=== PATIENT | female | born 1945 | race Caucasian/White ===

== ENCOUNTER 2016-09-10 08:11 | Inpatient (IN) | payer MEDICARE ==
[2016-09-10] VITALS (9 sets, daily range): BP systolic 180–231; BP diastolic 67–91; PULSE 61–93; RESP 15–22; O2SAT 90–98
[~2016-09-10] VITALS: Ht 172.7 cm; Wt 45.0 kg
--- NOTE | 2016-09-10 08:05 | ED.REPORT ---
HPI-General Illness Date of Service Sep 10, 2016 ED Provider: Gianni Chaves MD 70 year old female with a history of NC, CAD, cardiac stent placement, COPD, and GERD presents to the ER via EMS due to a day of chest tightness, with acute shortness of breath onset today just prior to arrival. She reports that her current symptoms feel similar to prior COPD exacerbations. Associated symptom of general malaise for the past few days. Patient denies pain with deep inspiration, fever, chills, . She takes ASA daily. NTG and ASA administered en route. Nursing Notes Stated Complaint: CHEST PAIN,SOB Nursing Notes Reviewed: Yes Allergies: Coded Allergies: Adhesives (Verified Allergy, Unknown, skin tears, 06/27/16) No Known Allergies (Verified Allergy, Unknown, 05/29/16) Iodine and Iodide Containing Produc (Verified Adverse Reaction, Unknown, rash, 06/27/16) Uncoded Allergies: NKDA (Allergy, Unknown, 04/28/04) NKFA (Allergy, Unknown, 04/28/04) Scheduled Albuterol HFA (Proair HFA) 8.5 Gm Hfa.aer.ad 2 PUFFS INHALATION Q4H Aspirin (Aspirin) 81 Mg Tablet 81 MG PO DAILY Atorvastatin Calcium (Atorvastatin Calcium) 80 Mg Tablet 80 MG PO DAILY Clopidogrel (Clopidogrel) 75 Mg Tablet 75 MG PO DAILY Isosorbide MN (Isosorbide MN) 10 Mg Tablet 10 MG PO BID Levothyroxine (Synthroid) 75 Mcg Tablet 75 MCG PO DAILY Lisinopril (Lisinopril) 20 Mg Tablet 20 MG PO DAILY Metoprolol Tartrate (Metoprolol Tartrate) 50 Mg Tablet 50 MG PO BID Paroxetine (Paroxetine) 40 Mg Tablet 40 MG PO HS Trazodone (Trazodone) 100 Mg Tablet 100 MG PO HS Scheduled PRN Alprazolam (Alprazolam) 0.5 Mg Tablet 0.5 MG PO HS PRN PRN For Anxiety Nitroglycerin SL (Nitrostat) 0.4 Mg Tab.subl 0.4 MG SL Q5MIN PRN PRN For Chest Pain Miscellaneous Medications Fluticasone Propionate (Fluticasone Propionate) 50 Mcg/Actuation Armstrong.susp 15.8 ML NS General Time Seen by MD: 08:04 Chief Complaint Chest pain Hx Obtained From: Patient Arrived By: Ambulance Sudden in Onset?: Yes Onset Occurred: Yesterday Symptom Duration: Since onset Location: : Chest Quality: Painful, Pressure Severity: Current: Moderate Severity: Maximum: Moderate Associated with: Reports: Shortness of breath Past Medical History Past Medical History NC Reports: COPD, Coronary artery disease, GERD, Stroke Reports: Depression, Thyroid disease Past Surgical History Cardiac stent placement Right rotator cuff repair Smoking History Current Every Day Smoker Review of Systems Full Review of Systems Constitutional: Reports: Malaise, Denies: Chills, Fever Respiratory: Reports: Shortness of breath, Denies: Non-productive cough Cardiovascular: Reports: Chest pain GI: Denies: Nausea, Vomiting Musculoskeletal: Denies: Back pain, Extremity pain, Neck pain Skin: Denies Diaphoresis Complete sys rev & neg: except as marked. Physical Exam Vital Signs Vital Signs Date Time Temp Pulse Resp B/P Pulse Ox O2 Delivery O2 Flow Rate FiO2 09/10/16 09:42 83 15 211/67 98 Nasal Cannula 3 09/10/16 08:20 36.6 93 22 231/90 90 Nasal Cannula 3 Initial VS: Reviewed Head / Eyes: Atraumatic, Normocephalic Neck: Supple, Non-tender, Full range of motion Abdomen / GI: Soft, Non-tender, No guarding, No rebound, No distention Extremities: Vascular intact, Neuro intact, No swelling, No tenderness Skin: Warm, Dry, No cyanosis Neurologic: Alert, Oriented, Nonfocal General/Constitutional: Awake, Alert, Well developed, Well nourished Respiratory / Chest: No rales, No rhonchi, No wheezing Diminished Breath Sounds: Positive: Decreased bilateral Wheezing / Retractions: Positive: Prolonged exp phase, Supracostal retractions Increased work of breathing. Cardiovascular: Heart rate NL, Regular rhythm, Heart sounds NL, No murmurs, Cap refill not delayed, Peripheral circulation NL Interpretation & Diagnostics Lab Results Interpretation Result Diagram: 09/10/1628 09/10/16 0828 Test 09/10/16 08:28 White Blood Count 12.6th/mm3 (3.8-10.1) Red Blood Count 3.77mil/mm3 (3.90-5.20) Hemoglobin 12.0g/dL (12.0-15.6) Hematocrit 37.0% (35.0-46.0) Mean Corpuscular Volume 98.1fL (81-100) Mean Corpuscular Hemoglobin 31.8pg (27.0-35.0) Mean Corpuscular Hemoglobin Concent 32.4% (32.0-37.0) Red Cell Distribution Width 14.8% (12.3-15.4) Platelet Count 189bil/L (150-400) Neutrophils (%) (Auto) 83.0% (40-74) Lymphocytes (%) (Auto) 8.7% (14-46) Monocytes (%) (Auto) 5.9% (4-12) Eosinophils (%) (Auto) 1.8% (0-5) Basophils (%) (Auto) 0.4% (0-3) Sodium Level 137mEq/L (134-144) Potassium Level 3.5mEq/L (3.5-5.2) Chloride Level 99mEq/L (97-108) Carbon Dioxide Level 23mmol/L (18-29) Blood Urea Nitrogen 29mg/dL (8-27) Creatinine 1.55mg/dL (0.57-1.00) Estimat Glomerular Filtration Rate 47mL/min (>59) Glucose Level 156mg/dL (60-99) Calcium Level 8.3mg/dL (8.5-10.1) Magnesium Level 2.0mg/dL (1.6-2.6) Total Bilirubin 0.4mg/dL (0.0-1.2) Aspartate Amino Transf (AST/SGOT) 42U/L (0-50) Alanine Aminotransferase (ALT/SGPT) 42U/L (0-32) Alkaline Phosphatase 169U/L (25-165) Troponin T < 0.010ug/L (0.0-0.011) Pro-B-Type Natriuretic Peptide 99113xk/mL (0-301) Total Protein 6.4g/dL (6.4-8.4) Albumin 3.5g/dL (3.4-5.0) Hold Agrawal Top Tube Received (Received) ECG Interpretation ECG Interpretation: Sinus rhythm, rate 81 ST depression of 1-2mm in lateral leads T wave inversions present in leads 2, 3, and AVF when compared to prior ECG 04/14/[address] depressions are new, and T wave inversions are new. Time: 08:36 Interpreted by: ED physician X-Ray Chest Interpretation Chest Xray Interpretation: IMPRESSION: Increased bilateral groundglass opacities in keeping with pulmonary edema. Please correlate clinically Dictated by: Alfredo Edmondson M.D. on 09/10/2016 at 10:09 Approved by: Alfredo Edmondson M.D. on 09/10/2016 at 10:10 View: AP & lat Interpretation / Wet Read by: Interpret - Radiologist Re-Eval/Medical Decision Med Decision/Clinical Course 70 year old female with a history of NC, CAD, cardiac stent placement, COPD, and GERD presents to the ER via EMS due to a day of chest tightness, with acute shortness of breath onset today just prior to arrival. She reports that her current symptoms feel similar to prior COPD exacerbations. Associated symptom of general malaise for the past few days. Patient denies pain with deep inspiration, fever, chills, . She takes ASA daily. NTG and ASA administered en route. Upon arrival the patient is a notable respiratory distress and hypertensive with a blood pressure in the 230s over 90s. EKG was obtained a interpreted by myself as documented above, EKG findings were discussed with cardiology Dr. Wright, given her overall clinical picture and negative initial troponin patient not felt to be a candidate for immediate cardiac catheterization or upper dilation. Patient was treated with the below medications: 20mg IV Labetalol 40mg IV Lasix 1 inch Nitropaste Laboratory studies were notable as below: Leukocytosis 12.6, new CBC otherwise normal BUN 29, slightly increased from baseline Creat 1.55, slightly increased from baseline BNP 37000 Troponin neg Mildly elevated transaminases and alkaline phosphatase No significant electrolyte abnormalities Chest x-ray demonstrated new onset pulmonary edema. Given patient's severe hypertension patient was treated with IV labetalol and nitro paste with improvement in blood pressure to 180 systolic. Patient has significant symptom improvement. Pulmonary examination consistent with COPD exacerbation and patient was treated with DuoNeb as well as 125 mg of IV methylprednisolone with improvement in symptoms. Overall clinical picture at this time concerning for hypertensive emergency resulting in ischemic EKG changes as well as superimposed COPD exacerbation. Blood pressure significantly improved but remains elevated. Will continue to administer IV antihypertensives as needed. Cardiology consultation. Patient admitted to ICU for further management. Source of Hx: Old records Time of Eval: 08:18 Re-Evaluation/Progress Note: Discussed physical examination findings and need for admission pending further testing. Patient is amenable to the plan. Consultation #1: Referral / Consult Name: Brianna Wright MD Consulted With: Cardiology Call Returned at: 08:45 It Data Architect: Will see patient Note: Does not recommend anything beyond ASA already administered. Consultation #2: Referral / Consult Name: Brianna Wright MD Consulted With: Cardiology Call Returned at: 09:57 Note: Dr. Wright, Cardiology, is now present in the department. Chest pain could be due to QRS widening today. In regards to heparin, either way. Consultation #3: Consulted With: Hospitalist Call Returned at: 10:42 It Data Architect: Referred to other consult Note: Admit to PCC. Consultation #4: Referral / Consult Name: Jamey Cifuentes MD Consulted With: Hospitalist Call Returned at: 10:52 It Data Architect: Agrees with eval, Agrees with plan, Accepts admit Counseled Regarding: Diagnosis, Lab results, Need for admission Discharge & Departure Primary Impression: Hypoxia Additional Impressions: Shortness of breath Chest pain Chest pain type: unspecified Qualified Code: R07.9 - Chest pain, unspecified COPD exacerbation Respiratory distress Hypertensive emergency Pulmonary edema Chronicity: acute Qualified Code: J81.0 - Acute pulmonary edema Elevated brain natriuretic peptide (BNP) level Disposition: ADMITTED TO HOSPITAL Discharge Condition All VS Reviewed: Yes Condition: Stable Referrals: Angle Peters MD (PCP) Crit Care Except Billable Proc Time Spent: 105-134 minutes Services Performed: Patient management by me, Time spent at bedside, Reviewing test results, Reviewing imaging, Discussing patient care, Documentation in record, Time with fam/surrogate Scribe Attestation Portions of this note were transcribed by Nicola Hartmann. I, Dr. Cahves, personally performed the history, physical exam and medical decision-making; I reviewed and confirmed the accuracy of the information in the transcribed note. Signed by: Jose Almaraz, 09/10/2016 and 10:52 copies to: Angle Peters MD, Beck O MD Sep 10, 2016 08:04 NICOLA HARTMANN Sep 10, 2016 08:13
[~2016-09-10 08:11] MED LIST: 0.9% Sodium Chloride 1,000 ML IV ONE; ALBU8.5H2 INHALATION; ALPR0.5T8 PO; ASPI-973 PO; ATOR80TA77 PO; CLOP75TA28 PO; FLUT15.88 NOSTRIL; ISOS10TA8 PO; LISI-567 PO; METO50TA3 PO; NITR0.4T SL; Ondansetron 2 mg/mL 2 mL Inj IVPUSH ONE; PARO40TA3 PO; SYN75 PO; TRAZ-118 PO
[2016-09-10] MEDS ORDERED: MethylprednisoLONE Sodium Succinate 62.5 mg/mL 2 mL Inj ONE (08:35)
[2016-09-10 08:37] LABS: BASOPHILS % (AUTO) 0.4 % (0-3); EOSINOPHILS % (AUTO) 1.8 % (0-5); MONOCYTES % (AUTO) 5.9 % (4-12); Mean Corpuscular Hemoglobin 31.8 pg (27.0-35.0); Mean Corpuscular Volume 98.1 fL (81-100); Platelet Count 189 bil/L (150-400)
[2016-09-10 09:22] LABS: TROPONIN T < 0.010 ug/L (0.0-0.011)
--- NOTE | 2016-09-10 10:10 | DRSVH ---
PROCEDURE: X-RAY CHEST, TWO VIEWS ([id number]) INDICATIONS: sob TECHNIQUE: 2 views of the chest were acquired. COMPARISON: [facility], CR, XR CHEST 2VW, 09/29/2015, 11:09. FINDINGS: Surgical changes and devices: None. Lungs and pleura: No pleural effusions or pneumothorax. Bilateral widespread groundglass opacities a ppear increased no definite focal consolidation. Blane B-lines noted Mediastinum: Mediastinal contours are normal. Heart size is normal. Bones and chest wall: No suspicious bony abnormalities. Soft tissues appear unremarkable. IMPRESSION: Increased bilateral groundglass opacities in keeping with pulmonary edema. Please correlate clinicall y Dictated by: Alfredo Edmondson M.D. on 09/10/2016 at 10:09 Approved by: Alfredo Edmondson M.D. on 09/10/2016 at 10:10
[2016-09-10] MEDS ORDERED: Labetalol 5 mg/mL 4 mL Inj IVPUSH ONE ×2 (10:25→13:05)
[2016-09-10] MEDS ORDERED: Furosemide 10 mg/mL 4 mL Inj IVPUSH ONE (10:25)
[2016-09-10] MEDS ORDERED: Nitroglycerin 2% 1 Gm Ointment TOPICAL SCH (10:45)
[2016-09-10] MEDS ORDERED: Ondansetron 2 mg/mL 2 mL Inj IVPUSH PRN ×2 (10:55→13:40)
[2016-09-10] MEDS ORDERED: Alum-Mag Hydrox-Simeth 30 mL Suspension PO PRN ×2 (10:55→13:40)
[2016-09-10 13:22] LABS: APPEARANCE,URINE CLEAR (CLEAR,HAZY); COLOR,URINE STRAW (YELLOW); OCCULT BLOOD,URINE TRACE (NEGATIVE); UROBILINOGEN,URINE NORMAL (NORMAL)
[2016-09-10] MEDS ORDERED: Polyethylene Glycol (PEG) 17 Gm Powder PO PRN (13:40)
[2016-09-10] MEDS ORDERED: Influenza (Adult) Vaccine 0.5 mL Syringe IM ONE (14:15)
--- NOTE | 2016-09-10 15:45 | PCM.PHAPRO ---
Progress -b 11-b 12-Aug 2.45 2.92 2.28 0.36 0.47 -0.64 2 0.5 MG 2 Stevo Silva Sep 10, 2016 15:45
[2016-09-10] MEDS ORDERED: Albuterol 1.25 mg/3 mL Inhalation Solution NEB PRN (17:30)
--- NOTE | 2016-09-10 17:32 | PCM.HPMED ---
Subjective Date of Service Sep 10, 2016 Primary Provider: Admitting Physician: Piyush Manrique MD Primary Care Physician: Angle Peters MD Attending Physician: Jamey Cifuentes MD Chief Complaint: Shortness of breath History of Present Illness: Patient is a 70 year old female with a history of IL, CAD, cardiac stent placement, COPD, and GERD presents to the ER via EMS due to a day of chest tightness, with acute shortness of breath onset today. She reports that her current symptoms feel similar to prior COPD exacerbations. She reports general malaise for the past few days, as well as orthopnea, which is better on sitting up, paroxysmal nocturnal dyspnea, wheezing, and some edema. She reports a chronic cough with clear sputum, but reports this is unchanged. She denies URI symptoms or sick contacts. Patient denies pain with deep inspiration, fever, chills, She takes ASA daily. NTG and ASA administered en route. Review of Systems: Comprehensive review of systems conducted and was negative except for the pertinent positives listed above. Allergies Coded Allergies: Adhesives (Verified Allergy, Unknown, skin tears, 06/27/16) No Known Allergies (Verified Allergy, Unknown, 05/29/16) Iodine and Iodide Containing Produc (Verified Adverse Reaction, Unknown, rash, 06/27/16) Uncoded Allergies: NKDA (Allergy, Unknown, 04/28/04) NKFA (Allergy, Unknown, 04/28/04) Home Medications Albuterol Alprazolam 0.5 mg qhs PRN Aspirin 81 mg Atorvastatin 80 mg Plavix 75 mg Fluticasone nasal Isosorbide mononitrate 10 mg BID Levothyroxine 75 mcg Lisinopril 20 mg Metoprolol tartrate 50 mg BID Nitrostate PRN Paroxetine 40 mg hs Trazodone 100 mg hs PMH [place] COPD Coronary artery disease GERD Stroke Depression Grave's disease s/p thyroidectomy Surgical History Cardiac stent placement Right rotator cuff repair Thyroidectomy Social History Hx Alcohol Use: Yes Alcoholic Drinks Per Day: couple glasses a wine or beers per week. States does not drink daily Hx Substance Use: Yes (marijuana) Hx Tobacco Use: Yes (10 cigarette a day.) Smoking Status: Current Every Day Smoker (1 pack/day) Exam Vital Signs Vital Sign - Last Date Time Temp Pulse Resp B/P Pulse Ox O2 Delivery O2 Flow Rate FiO2 09/10/16 16:44 36.7 63 18 220/88 96 Nasal Cannula 3.00 Exam General: Alert, Oriented X3, Cooperative, No Acute Distress Head: Normocephalic, atraumatic. External ears normal. Eyes: PERRLA, EOMI. Anicteric sclerae. Mouth: Mouth Normal, Mucous Membranes Moist/[place] Neck: Neck supple with full range of motion. Chest & Lungs: Crackles bilateral bases Cardiovascular: Regular Rate/Rhythm, Normal S1, Normal S2, No Murmurs/Rubs/ Gallops Abdomen: Non-tender, Non-distended, No masses, Normoactive bowel tones, Soft Musculoskeletal: Normal Range of Motion Extremities: Mild bilat pedal edema Neurological: Grossly Neurologically Intact, Normal Speech Lab and Diagnostics Result Diagram: 09/10/1682709/10/16827 Assessment & Plan Patient is a 70 year old female with a history of IL, CAD, cardiac stent placement, COPD, and GERD presents to the ER via EMS due to a day of chest tightness, with acute shortness of breath onset today. Admitted for CHF exacerbation and hypertensive emergency. 1. Acute on chronic diastolic CHF exacerbation. Present on admission. - Echo 05/07/12 showed EF 55-60%, moderate LA dilation, trace MR. She presents with pedal edema, shortness of breath on exertion, orthopnea, and paroxysmal nocturnal dyspnea in the context of a significant cardiac history. CXR showed likely pulmonary edema. BNP was 19,000. - Received Lasix 40 mg IV in ED. Will monitor for now and admin Lasix as appropriate. - Echocardiogram ordered - Monitor I/O - Daily standing weights - Continue Lisinopril and Metoprolol 2. Hypertensive emergency, acute. Present on admission. - Pt presented with BP 231/90, with signs of MOHAMUD and elevated transaminases. Received Labetalol 40 mg IV total and Lisinopril 20 mg, as well as Metoprolol 50 mg. If her blood pressure does not improve, will have to start nicardipine or labetalol drip. - Continue to monitor blood pressure - Continue home Imdur, lisinopril, metoprolol 3. Acute kidney injury. Present on admission. - Likely secondary to CHF exacerbation vs hypertensive emergency. - Will avoid nephrotoxic medications while treating both underlying conditions. 4. Leukocytosis, acute. Present on admission. - Pt presents with WBC 12.6. No fevers or signs of infection. UA negative, CXR more suspicious for pulmonary edema. Will continue to monitor. - Procalcitonin ordered - Monitor CBC 5. COPD - Some suspicion for COPD exacerbation, but given her history and presentation, her shortness of breath is more likely CHF. - Duoneb q4h PRN - Albuterol neb q2h PRN - Advise she stop smoking cigarettes. 6. Hyperglycemia, acute. Present on admission. - Glucose 156 on admission. - A1c ordered - Continue to monitor glucose 7. Elevated transaminases, acute. Present on admission. - Likely secondary to hypertensive emergency. - Monitor LFTs 8. Anxiety and depression - Continue home alprazolam, paroxetine, trazodone 9. Coronary artery disease - Continue aspirin and Plavix and atorvastatin 10 .Grave's disease s/p thyroidectomy - Continue home levothyroxine 11. Other Chronic Conditions - IL - GERD - Stroke - Bowel regimen as needed - Antiemetic as needed INPATIENT: Patient is admitted under inpatient status with expected length of stay greater than 2 midnights due to severity of presenting symptoms, risk of adverse event, and complexity of treatment plan. VTE Prophylaxis: Sub-Q Heparin (Unfractionated) Resuscitation Status: CPR: Attempt Resuscitation Attending Statement The patient was seen and examined together with Dr. Parrish on 09/10/2016 and I agree with the history, exam and plan as outlined in the note above. . Bart Parrish Sep 10, 2016 17:19 Jamey Cifuentes MD Sep 13, 2016 09:22
[2016-09-10] MEDS: Heparin 5,000 Unit/mL Inj SUBQ SCH (18:41)
--- NOTE | 2016-09-10 19:12 | NUR ---
Oxygenation/BP Patient arrived on unit at 1330 in a stable condition, ambulated to bed from stretcher SBA. Alert and oriented x3, CORDOBA, reports some numbness in bilateral feet. Scheduled breathing treatments per RT, currently on 2LNC with SPO2 at 93%. BP 200s-210s/90s after 20mg IV labetolol in both the ED and after arrival to floor. Home BP meds restarted, lisinopril and metoprolol given, home medication in drawer. No reports of pain, no n/v/d/c or abdominal pain, no chest pain reported all shift.
[2016-09-10] MEDS: ISOSORBIDE MONONITRATE 10 MG PO SCH (19:40)
[2016-09-11] VITALS (14 sets, daily range): BP systolic 131–197; BP diastolic 64–85; PULSE 54–94; RESP 16–18; O2SAT 93–97
[2016-09-11] MEDS: Heparin 5,000 Unit/mL Inj SUBQ SCH ×3 (00:44→17:21)
--- NOTE | 2016-09-11 02:24 | NUR ---
Mentation At 1230. Pt has scheduled medication administration. Pt was awake and stated she would like to have lights turned off. Pt stated she did not know how to call. Pt reorientated and shown how to call the nurse next time she needed anything.
[2016-09-11 03:36] LABS: BASOPHILS % (AUTO) 0.2 % (0-3); EOSINOPHILS % (AUTO) 0 % (0-5); MONOCYTES % (AUTO) 5.8 % (4-12); Mean Corpuscular Hemoglobin 31.9 pg (27.0-35.0); Mean Corpuscular Volume 97.2 fL (81-100); Platelet Count 158 bil/L (150-400)
[2016-09-11] MEDS: Albuterol-Ipratropium 3 mL Inhalation Solution NEB PRN ×3 (05:24→14:29)
[2016-09-11] MEDS: ISOSORBIDE MONONITRATE 10 MG PO SCH ×2 (09:39→21:13)
[2016-09-11] MEDS: PARoxetine 20 mg Tablet PO SCH (09:41)
--- NOTE | 2016-09-11 10:56 | NUR ---
Social Working Note: Initial Assessment Data& Assessment: EMR reviewed. SW met with pt at bedside to discuss discharge planning, SW role explained. SW phone number provided on [employer]. Qi Chavez is a 70 year old female admitted on 09/10/2016 for hypoxia and shortness of breath. Pt has Medicare insurance coverage and sees Angle Kimball MD for primary care. Pt lives in [place] with her is remains independent with all ADL's at baseline. Pt is independent in her room. Pt does not use any DME but does own a cane and walker if she needed to use them. Pt lives in a one story home with two steps to enter the home. Pt does drive. Pt denies HH or SNF hx. Pt does not have LTC insurance or VA benefits. Pt confirms she and her do have DPOA paperwork completed, SW requested she bring in a copy for her chart when possible. Pt explained her is able to transport home when she is medically ready. Pt denies any other needs at this time. SW to continue to follow if any needs arise. Plan: Anticipated discharge home via POV when medically ready. Pt explained her is able to transport home when she is medically ready. Pt denies any other needs at this time. SW to continue to follow if any needs arise. IRA Almaraz Addendum: 09/11/16 at 1150 by JULIO ALEJANDRA Amended: Links added.
[2016-09-11] MEDS ORDERED: Furosemide 10 mg/mL 4 mL Inj IVPUSH ONE (12:00)
--- NOTE | 2016-09-11 12:50 | NUR ---
Case Management: JOAQUÍN delivered and signed. Original placed in chart and copy left at bedside. Martha Parker RN
--- NOTE | 2016-09-11 14:28 | NUR ---
NUTRITION ASSESSMENT Assess: 70 YO F admitted for CHF, hypoxia, shortness of breath. PMHX: ND, COPD, CAD, GERD, stroke, depression, Grave's disease s/p thyroidectomy. DIET: Heart Healthy, No PO intake recorded yet. LABS: BUN 31, Cr 1.69, Glu 138, Ca 8.3, Alb 3.1 MEDICATIONS: Reviewed. GI: No BM noted. SKIN: No issues noted. WEIGHT: 45.8 kg, BMI 15.4 kg/m2 = underweight, Admit wt: 47.3 kg. ESTIMATED NEEDS: Weight gain Calories: 6208-0465 kcal/day (30-35 kcal/kg BW) Protein: 76-95 g/day (1.2-1.5 kcal/kg IBW) NUTRITION DIAGNOSIS: 1) Inadequate oral intake related to inability to maintain sufficient weight as evidenced by underweight BMI 15.4 kg/m2. INTERVENTION: 1) If PO intake is poor, will consider adding nutrition supplements. MONITOR/EVALUATE: PO intake, labs, weight, GI, nutrition status. Follow per moderate nutrition risk guidelines.
--- NOTE | 2016-09-11 15:58 | DRSVH ---
[facility] [address] [place] [address] Echocardiogram Report Name: ROSEMARY HUGO LStudy Date: 09/11/2016 Height: 68 in Hospital Exam Location: [facility] Weight: 101 lb Gender: Female BSA: 1.5 m2 : 1945 Age: 70 yrs BP: 172/71 mmHg Reason For Study: Dyspnea Ordering Physician: [facility] Performed By: Pierce Jaramillo Referring Physician: VARUN UNGER Interpretation Summary 1) Mild concentric left ventricular hypertrophy with normal size and mildly reduced systolic function (EF 45-50%). 2) Basal inferior wall is hypokinetic. 3) Borderline enlarged right ventricle with normal function. 4) Septal flattening during systole suggests right ventricular pressure/volume overload. 5) Moderate mitral regurgitation present. 6) Mild to moderate tricuspid regurgitation present. 7) Moderate size left pleural effusion present. 8) Pulmonary hypertension present, estimated systolic pulmonary pressure of 52mmHg. 9) Elevated left and right sided filling pressures. 10) Compared to the Echo done 05/07/2012, reduced LV function, basal inferior wall hypokinesis, pulmonary hypertension, and hypervolemia are new on today's study. Procedure: A two-dimensional transthoracic echocardiogram with color flow and Doppler was performed. The study quality was technically adequate. Comparison is made with the echocardiogram of 05/07/12. The patient was in sinus bradycardia with heart rates between 48-62 bpm during the exam. Left Ventricle: The left ventricle is normal in size. There is mild concentric left ventricular hypertrophy. The ejection fraction is estimated to be 45-50%. Flattened septum is consistent with RV pressure/volume overload. Basal inferior wall is hypokinetic. Assessment of diastolic parameters indicates a restrictive filling pattern of the left ventricle consistent with significantly elevated filling pressures. Right Ventricle: The right ventricle is borderline dilated. The right ventricular systolic function is normal. Atria: The left atrium is severely dilated. Right atrial size is normal. The interatrial septum is intact with no evidence for an atrial septal defect. Mitral Valve: The mitral valve leaflets appear borderline thickened, but open well. There is moderate mitral regurgitation. Aortic Valve: The aortic valve is normal in structure and function. There is mild aortic stenosis. No aortic regurgitation is present. Tricuspid Valve: The tricuspid valve is normal. There is mild to moderate tricuspid regurgitation. The right ventricular systolic pressure is estimated at 52 mmHg assuming a right atrial pressure of 15 mm Hg. Pulmonic Valve: The pulmonic valve leaflets are thin and pliable; valve motion is normal. There is no pulmonic valvular regurgitation. Great Vessels: The aortic root is normal size. The ascending aorta could not be visualized. The pulmonary artery is normal size. The IVC is dilated (diameter is greater than 2.1 cm) and it collapses less than 50% with a sniff. This suggests a high right atrial pressure of 15 mm Hg. Pericardium/ Pleura There is no pericardial effusion. There is a moderate left-sided pleural effusion. MMode/2D Measurements & Calculations LVIDd: 4.4 cm RA long axis LVOT diam: 2.0 cm LVIDs: 3.3 cm LA A2 area: 24.0 cm AoV Opening FS: 25.5 % LA A4 area: 27.5 cm RA area EPSS: 0.97 cm LA length (vol) Ao root diam IVSd: 1.2 cm : 14.4 cm LVPWd: 1.1 cm LA vol: 95.0 ml RA vol Ao Arch Diam (Prox LA vol index : 34.6 ml Trans): 2.0 cm RA : 22.6 mm2 IVC diam: 2.5 cm LV smith. diameter/BSA LV sys. diameter/BSA RVD1 (basal) TAPSE: 1.9 cm (cm/m^2): 2.9 (cm/m^2): 2.2 Doppler Measurements & Calculations Ao V2 max MV E max antwan MV E/A: 2.7 TR max antwan : 166.9 cm/sec : 121.4 cm/sec Med Peak E' Antwan : 305.8 cm/sec Ao max PG MV A max antwan TR max PG : 11.1 mmHg : 45.4 cm/sec E/E' med: 40.1 : 37.4 mmHg Ao mean PG Lat Peak E' Antwan PA V2 max MVA(VTI): 1.6 cm : 93.2 cm/sec LVOT Max Antwan MR ERO: 0.18 cm2 E/E' lat: 36.6 PA mean PG : 83.2 cm/sec E/e' average : 1.7 mmHg MIKA(I,D): 1.3 cm sev ratio MV V2 mean Ao V2 mean LV V1 max PG MR flow rate : 67.7 cm/sec : 117.9 cm/sec : 88.2 cm3/sec MV mean PG Ao V2 VTI: 42.4 cm LV V1 VTI MR PISA radius MIKA(V,D): 1.5 cm2 : 18.5 cm MV V2 VTI MV dec time : 0.20 sec PA V2 mean MIKA indexed to BSA : 62.4 cm/sec (cm^2/m^2): 0.88 PA pr(Accel) : 32.3 mmHg Reading Physician:03:56 PM
[2016-09-11] MEDS ORDERED: Labetalol 5 mg/mL 4 mL Inj IVPUSH PRN (18:20)
--- NOTE | 2016-09-11 18:27 | NUR ---
BP/Oxygenation Patient alert and oriented x3, up independently in room, 96% on RA, no reports of n/v/d/c or abdominal pain, no CP, reports no SOB at rest, reports "a little" with ambulation. Tolerating PO intake well although patient only takes a few bites of each meal. BP this AM prior to Lisinopril, Imdur and Metoprolol 170s systolic. At 1200 vital sign checks, systolic down to 130s. VS check at 1630 BP back up to 170s systolic-- asymptomatic. aware.
--- NOTE | 2016-09-11 22:26 | PCM.PNMED ---
Subjective Date of Service Sep 11, 2016 Subjective Patient is a 70 year old female with a history of ID, CAD, cardiac stent placement, COPD, and GERD presents to the ER via EMS due to a day of chest tightness, with acute shortness of breath onset today. She reports that her current symptoms feel similar to prior COPD exacerbations. She reports general malaise for the past few days, as well as orthopnea, which is better on sitting up, paroxysmal nocturnal dyspnea, wheezing, and some edema. She reports a chronic cough with clear sputum, but reports this is unchanged. She denies URI symptoms or sick contacts. Patient denies pain with deep inspiration, fever, chills, She takes ASA daily. NTG and ASA administered en route. Overnight events: Patient was Hypertensive with SBP > 220. Today: Patients SBP remained elevated. She was lying in bed tolerated RA in no acute distress. She reports feeling fine and is ready to go home. She denies shortness of breath, chest pain, headache, cough, nausea, vomiting, abdominal pain, constipation, diarrhea. Exam Vital Signs Vital Sign - Last Date Time Temp Pulse Resp B/P Pulse Ox O2 Delivery O2 Flow Rate FiO2 09/11/16 16:28 36.7 67 18 174/85 95 Room Air 09/11/16 04:35 1.00 Intake and Output 09/10/16 09/10/16 09/11/16 Cumulative From/Thru 15:00 23:00 07:00 09/10/16 08:20 - 09/11/16 06:03 Intake Total 1000 ml 170 ml 500 ml 1670 ml Output Total 750 ml 600 ml 1350 ml Balance 1000 ml -580 ml -100 ml 320 ml Intake Oral 170 ml 500 ml 670 ml IV Total 1000 ml 1000 ml Output Urine Total 750 ml 600 ml 1350 ml # Voids 1 1 # Bowel Movements 0 0 Exam General: Alert, Oriented X3, Cooperative, No Acute Distress Head: Normocephalic, atraumatic. External ears normal. Eyes: PERRLA, EOMI. Anicteric sclerae. Mouth: Mouth Normal, Mucous Membranes Moist/Omer Neck: Neck supple with full range of motion. Chest & Lungs: Crackles bilateral bases Cardiovascular: Regular Rate/Rhythm, Normal S1, Normal S2, No Murmurs/Rubs/ Gallops Abdomen: Non-tender, Non-distended, No masses, Normoactive bowel tones, Soft Musculoskeletal: Normal Range of Motion Extremities: Mild bilat pedal edema Neurological: Grossly Neurologically Intact, Normal Speech IVs and Medications Medications Reviewed: Medications were reviewed in detail Lab and Diagnostics Result Diagram: 09/11/16 0234 09/11/16 0234 Assessment & Plan Patient is a 70 year old female with a history of ID, CAD, cardiac stent placement, COPD, and GERD presents to the ER via EMS due to a day of chest tightness, with acute shortness of breath onset today. Admitted for CHF exacerbation and hypertensive emergency. 1. Acute systolic HF with reduced ejection fraction. Present on admission. - Echo 05/07/12 showed EF 55-60%, moderate LA dilation, trace MR. She presents with pedal edema, shortness of breath on exertion, orthopnea, and paroxysmal nocturnal dyspnea in the context of a significant cardiac history. CXR showed likely pulmonary edema. BNP was 19,000. - Received Lasix 40 mg IV in ED. Will monitor for now and admin Lasix as appropriate. - Echocardiogram showed EF 45-50%. - Monitor I/O - Daily standing weights - Continue Lisinopril and Metoprolol. 2. Hypertensive emergency, acute. Present on admission. Improving. - Pt presented with BP 231/90, with signs of MOHAMUD and elevated transaminases. Received Labetalol 40 mg IV total and Lisinopril 20 mg, as well as Metoprolol 50 mg. If her blood pressure does not improve, will have to start nicardipine or labetalol drip. - Continue to monitor blood pressure - Continue home Imdur, lisinopril, metoprolol. 3. Acute kidney injury. Present on admission. active. - Likely secondary to CHF exacerbation vs hypertensive emergency. - Will avoid nephrotoxic medications while treating both underlying conditions. 4. Leukocytosis, acute. Present on admission. improved. - Pt presents with WBC 12.6. No fevers or signs of infection. UA negative, CXR more suspicious for pulmonary edema. Will continue to monitor. - Procalcitonin negative. - Monitor CBC 5. COPD, present on admission. Active. - Some suspicion for COPD exacerbation, but given her history and presentation, her shortness of breath is more likely CHF. - Duoneb q4h PRN - Albuterol neb q2h PRN - Advise she stop smoking cigarettes. 6. Hyperglycemia, acute. Present on admission. controlled. - Glucose 156 on admission. - A1c ordered - Continue to monitor glucose 7. Elevated transaminases, acute. Present on admission. - Likely secondary to hypertensive emergency. - Monitor LFTs 8. Anxiety and depression - Continue home alprazolam, paroxetine, trazodone 9. Coronary artery disease - Continue aspirin and Plavix and atorvastatin 10 .Grave's disease s/p thyroidectomy - Continue home levothyroxine 11. Other Chronic Conditions - ID - GERD - Stroke 12. Chronic Diastolic heart failure, present on admission. active. - Bowel regimen as needed - Antiemetic as needed INPATIENT: Patient is admitted under inpatient status with expected length of stay greater than 2 midnights due to severity of presenting symptoms, risk of adverse event, and complexity of treatment plan. Pain Evaluation: Adequate Pain Control VTE Prophylaxis: Sub-Q Heparin (Unfractionated) VTE Mechanical Devices: Intermittant Pneumatic CD Resuscitation Status: CPR: Attempt Resuscitation Attending Statement The patient was seen and examined together with Dr. Unger on 09/11/2016 and I agree with the history, exam and plan as outlined in the note above. . VARUN UNGER DO Sep 11, 2016 18:26 Jamey Cifuentes MD Sep 13, 2016 09:21
--- NOTE | 2016-09-11 23:17 | NUR ---
Blood pressure BP at start of shift was 175/75 with HRof65. Labetolol given per order and BP decreased to 155/64. Pt tolerated this OK. Noted BP to be high after pt had been ambulating to bathroom(SBP in 190's), but decreased to 150's after resting a few minutes. Pt is asymptomatic with this.
[2016-09-12] VITALS (12 sets, daily range): BP systolic 151–196; BP diastolic 72–89; PULSE 50–68; RESP 14–20; O2SAT 94–98
[2016-09-12] MEDS: Heparin 5,000 Unit/mL Inj SUBQ SCH ×3 (00:35→16:47)
[2016-09-12 02:55] LABS: BASOPHILS % (AUTO) 0.8 % (0-3); EOSINOPHILS % (AUTO) 3.7 % (0-5); MONOCYTES % (AUTO) 6.5 % (4-12); Mean Corpuscular Hemoglobin 31.9 pg (27.0-35.0); Mean Corpuscular Volume 98.1 fL (81-100); Platelet Count 136 bil/L (150-400)
--- NOTE | 2016-09-12 05:23 | NUR ---
BP SBP has been in 150's for the rest of the shift. Denies pain or other symptoms. Slept well. Room air sats in mid-90's.
[2016-09-12] MEDS: PARoxetine 20 mg Tablet PO SCH (08:37)
[2016-09-12] MEDS: ISOSORBIDE MONONITRATE 10 MG PO SCH ×2 (08:37→20:35)
[2016-09-12] MEDS: Albuterol-Ipratropium 3 mL Inhalation Solution NEB PRN ×2 (08:44→21:01)
--- NOTE | 2016-09-12 10:15 | NUR ---
Case Management: [facility] delivered and signed. Original placed in chart. Copy left at bedside. Martha Parker RN
--- NOTE | 2016-09-12 14:52 | DRSVH ---
PROCEDURE: X-RAY CHEST ONE VIEW, PORTABLE ([id number]) INDICATIONS: Pulmonary edema TECHNIQUE: One view of the chest was acquired. COMPARISON: [facility], CR, XR CHEST 2VW, 09/10/2016, 8:19. [facility], CR, CHEST 1VW (PORTABLE), 04/14/2013, 17:08. FINDINGS: Surgical changes and devices: None. Lungs and pleura: New small left pleural effusion is present persistent moderate pulmonary edema rede monstrated. Mediastinum: Mediastinal contours appear normal. Heart size is enlarged. Bones and chest wall: No suspicious bony lesions. Overlying soft tissues appear unremarkable. IMPRESSION: New small left effusion and persistent edema. Dictated by: Taras MARTINES Interpreted: Yoon Sainz MD on 09/12/2016 at 14:51 Transcribed by: KINGA on 09/12/2016 at 14:52 Approved by: Yoon Sainz M.D. on 09/12/2016 at 15:12
--- NOTE | 2016-09-12 16:53 | CONS ---
[address] [address] CONSULTATION REPORT PATIENT: ROSEMARY HUGO : 1945 MR#: [id number] ADMIT: 09/10/2016 JOB ID: [id number] DATE OF SERVICE: 09/12/2016 HISTORY: The patient is a very pleasant, 71-year-old, white female, who was admitted to [facility] for acute congestive heart failure and hypertensive urgency. Since admission, she has been refractory to mild pharmacological intervention and renal consultation is being sought for further evaluation of her renal dysfunction. She states that she has a longstanding history of hypertension going back longer than 10 years. She states that she has always had problems with hypertension and has been on several medications without improvement. Her hypertension has been complicated by a stroke approximately 1-2 years ago for which she has mostly recovered her neurological function. She does have some occasional memory impairment and has a persistent scotoma over the medial aspect of the left eye ground. She denies a history of any hypokalemia, licorice ingestion, [id number] medications, herbal medications, excessive salt intake or heavy ethanol use. She does do home blood pressure readings and states that these are consistently elevated. She states in the last year she has had increasing fatigue and loss of energy. She has difficulties in performing her activities of daily living without shortness of breath or fatigue. She does also have a history of COPD. She denies a history of any prior renal problems. At time of admission, her creatinine was elevated at 1.55 and has risen since that time to a level 1.97 today. She denies a history of any prior hematuria, proteinuria, recurrent urinary tract infections, renal lithiasis, hepatitis, rheumatoid arthritis or lupus. She states that she does have some urinary frequency but denies any urgency, hesitancy, or dysuria. She also has a significant coronary artery history and has had several stents placed. She denies a history of atrial fibrillation. She does state that she has some occasional chest pain but has not had any in the last several days. There is also a history of chronic cough, wheezing, for which she several inhalers. She also has some occasional lower extremity edema and recently has had several episodes of paroxysmal nocturnal dyspnea. Otherwise, she denies any severe headaches, amaurosis fugax, change in weight, fever, chills, nausea, vomiting, or diarrhea. PAST MEDICAL HISTORY: Significant for severe hypertension with hypertensive heart disease and probable hypertensive nephrosclerosis, prior stroke, coronary artery disease with several stents placed, congestive heart failure, COPD, and post ablative hypothyroidism. She also has a history of hyperlipidemia for which she takes atorvastatin. Otherwise, she denies a history of diabetes or malignancies. PAST SURGICAL HISTORY: Significant for rotator cuff repair, thyroidectomy and cardiac stent placement. ALLERGIES: 1. ADHESIVES. 2. IODINE. SOCIAL HISTORY: She continues to smoke approximately one pack of cigarettes a day and has greater than [id number] smoking history. She also states that she has several glasses of wine or beer per week and uses marijuana. She denies any IV drugs, cocaine or methamphetamine. FAMILY HISTORY: Noncontributory. REVIEW OF SYSTEMS: As detailed above. MEDICATIONS: At time of my evaluation included: 1. Nicotine patch. 2. Aspirin. 3. Plavix. 4. Levothyroxine. 5. Lipitor. 6. Paxil. 7. Trazodone. 8. Metoprolol. 9. Isosorbide. 10. Albuterol. 11. Ipratropium. PHYSICAL EXAMINATION: Revealed a thin, pale, and somewhat ill-appearing, 71-year-old, white female, who was alert and oriented x3, in no distress at time of my evaluation. Blood pressure by my reading was 162/100. Her heart rate was 58. HEENT examination is remarkable for pale sclerae and funduscopic examination showed AV nicking. Neck is supple without adenopathy, thyromegaly. She did have some [id number] jugular venous distention at 90 degrees. Examination of her chest showed increased AP diameter and hyperresonance to percussion. She also had diminished breath sounds noted. Heart was regular and rhythmical, however, somewhat bradycardic. There was a 3/6 systolic ejection murmur and a soft S4 was noted. Abdomen was soft, without any tenderness, rebound, guarding, masses or hepatosplenomegaly. She did have evidence of an epigastric bruit. Extremities did not show any evidence of any clubbing, cyanosis, or edema. Skin turgor was good and there is no evidence of any rashes. Her chest x-ray showed some mild pulmonary edema and cardiomegaly. Echocardiography obtained during this admission showed left ventricular hypertrophy with an ejection fraction of 45% to 50% with some inferior wall hypokinesis. There is some mild mitral and tricuspid regurgitation and pulmonary hypertension was noted. She also had marked increase in her atrial and left and right atrial enlargement. No comment was made as far as her relaxation properties, but I would strongly suspect a component of diastolic dysfunction. This morning, her labs showed a sodium of 139, potassium 3.9, chloride 102, CO2 25, BUN and creatinine 46 and 1.97 calcium 8.1, and albumin 3.0. Urinalysis on admission showed a specific gravity of 1.006, pH was 6. Tests for occult blood was trace, otherwise remaining urinalysis was negative. Her blood count today showed a white count of 6.5, hemoglobin 9.9, hematocrit of 30.4, red cell indices, platelet count and differential were normal. IMPRESSION: 1. Mild acute kidney injury secondary to normalization of blood pressure. 2. Hypertension with hypertensive heart disease and hypertensive nephrosclerosis with congestive heart failure. 3. Epigastric bruit. 4. Chronic interstitial nephritis. RECOMMENDATION: With her epigastric bruit, I have a high suspicion for renal artery stenosis and I would like to get a renal artery duplex scan done along with a renal ultrasound. I would also like to get a uric acid along with a plasma renin activity and an aldosterone level. Once these are obtained, I would like to change her metoprolol to labetalol 100 mg twice a day and add chlorthalidone 25 mg and lisinopril 10 mg twice a day. Based on the above findings, I will have further recommendation at that time. Once again, I would like to thank you for allowing me to participate in the care of this most pleasant and interesting patient. I will be following her closely with you.
--- NOTE | 2016-09-12 18:05 | PCM.PNMED ---
Subjective Date of Service Sep 12, 2016 Subjective Patient is a 70 year old female with a history of MD, CAD, cardiac stent placement, COPD, and GERD presents to the ER via EMS due to a day of chest tightness, with acute shortness of breath onset today. She reports that her current symptoms feel similar to prior COPD exacerbations. She reports general malaise for the past few days, as well as orthopnea, which is better on sitting up, paroxysmal nocturnal dyspnea, wheezing, and some edema. She reports a chronic cough with clear sputum, but reports this is unchanged. She denies URI symptoms or sick contacts. Patient denies pain with deep inspiration, fever, chills, She takes ASA daily. NTG and ASA administered en route. Overnight events: No acute overnight events. Today: Patients SBP remained elevated and also bradycardic. She was lying in bed tolerated RA in no acute distress. She reports feeling fine and is ready to go home. She denies shortness of breath, chest pain, headache, cough, nausea, vomiting, abdominal pain, constipation, diarrhea. Exam Vital Signs Vital Sign - Last Date Time Temp Pulse Resp B/P Pulse Ox O2 Delivery O2 Flow Rate FiO2 09/12/16 08:28 36.6 53 18 196/89 95 Room Air 09/11/16 04:35 1.00 Intake and Output 09/11/16 09/11/16 09/12/16 Cumulative From/Thru 15:00 23:00 07:00 09/10/16 08:20 - 09/12/16 05:14 Intake Total 840 ml 400 ml 2910 ml Output Total 650 ml 1200 ml 3200 ml Balance 190 ml -800 ml -290 ml Intake Oral 840 ml 400 ml 1910 ml IV Total 1000 ml Output Urine Total 650 ml 1200 ml 3200 ml # Voids 1 # Bowel Movements 0 0 Exam General: Alert, Oriented X3, Cooperative, No Acute Distress Head: Normocephalic, atraumatic. External ears normal. Eyes: PERRLA, EOMI. Anicteric sclerae. Mouth: Mouth Normal, Mucous Membranes Moist/[place] Neck: Neck supple with full range of motion. Chest & Lungs: Crackles bilateral bases Cardiovascular: Regular Rate/Rhythm, Normal S1, Normal S2, No Murmurs/Rubs/ Gallops Abdomen: Non-tender, Non-distended, No masses, Normoactive bowel tones, Soft Musculoskeletal: Normal Range of Motion Extremities: Mild bilat pedal edema Neurological: Grossly Neurologically Intact, Normal Speech IVs and Medications Medications Reviewed: Medications were reviewed in detail Lab and Diagnostics Result Diagram: 09/12/1622309/12/16223 Assessment & Plan Patient is a 70 year old female with a history of MD, CAD, cardiac stent placement, COPD, and GERD presents to the ER via EMS due to a day of chest tightness, with acute shortness of breath onset today. Admitted for CHF exacerbation and hypertensive emergency. 1. Acute systolic HF with reduced ejection fraction. Present on admission. - Echo 05/07/12 showed EF 55-60%, moderate LA dilation, trace MR. She presents with pedal edema, shortness of breath on exertion, orthopnea, and paroxysmal nocturnal dyspnea in the context of a significant cardiac history. CXR showed likely pulmonary edema. BNP was 19,000. Currently BNP 24,000. - Received Lasix 40 mg IV in ED. worsening renal function will most likely discontinue Lasix. - Echocardiogram showed EF 45-50%. - Monitor I/O - Daily standing weights - We will start labetalol 100 mg twice a day - We will start chlorthalidone 25 mg daily - We will increase lisinopril 10 mg twice a day starting tomorrow. 2. Hypertensive emergency, acute. Present on admission. Improving. - Pt presented with BP 231/90, with signs of MOHAMUD and elevated transaminases. Received Labetalol 40 mg IV total and Lisinopril 20 mg, as well as Metoprolol 50 mg. If her blood pressure does not improve, will have to start nicardipine or labetalol drip. - Continue to monitor blood pressure - Discontinuing home medications. - Renal artery duplex scan done along with a renal ultrasound tomorrow. - I would also like to get a uric acid along with a plasma renin activity and an aldosterone level. 3. Acute kidney injury. Present on admission. active and worsening.. - Likely secondary to CHF exacerbation vs hypertensive emergency. - Creatinine on admission 1.55 currently 1.97. - Will avoid nephrotoxic medications while treating both underlying conditions. - Dr. Leong with nephrology following, time and recommendations appreciated. 4. Leukocytosis, acute. Present on admission. improved. - Pt presents with WBC 12.6. No fevers or signs of infection. UA negative, CXR more suspicious for pulmonary edema. Will continue to monitor. - Procalcitonin negative. - Monitor CBC 5. COPD, present on admission. Active. - Some suspicion for COPD exacerbation, but given her history and presentation, her shortness of breath is more likely CHF. - Duoneb q4h PRN - Albuterol neb q2h PRN - Advise she stop smoking cigarettes. 6. Hyperglycemia, acute. Present on admission. controlled. - Glucose 156 on admission. - A1c ordered - Continue to monitor glucose 7. Elevated transaminases, acute. Present on admission. - Likely secondary to hypertensive emergency. - Monitor LFTs 8. Anxiety and depression - Continue home alprazolam, paroxetine, trazodone 9. Coronary artery disease - Continue aspirin and Plavix and atorvastatin 10 .Grave's disease s/p thyroidectomy - Continue home levothyroxine 11. Other Chronic Conditions - MD - GERD - Stroke 12. Chronic Diastolic heart failure, present on admission. active. - Bowel regimen as needed - Antiemetic as needed INPATIENT: Patient is admitted under inpatient status with expected length of stay greater than 2 midnights due to severity of presenting symptoms, risk of adverse event, and complexity of treatment plan. Pain Evaluation: Adequate Pain Control VTE Prophylaxis: Sub-Q Heparin (Unfractionated) VTE Mechanical Devices: Intermittant Pneumatic CD Resuscitation Status: CPR: Attempt Resuscitation Attending Statement The patient was seen and examined together with Dr. Unger on 09/12/2016 and I agree with the history, exam and plan as outlined in the note above. . VARUN UNGER DO Sep 12, 2016 10:02 Jamey Cifuentes MD Sep 13, 2016 09:21
[2016-09-12] MEDS ORDERED: hydrALAZINE 20 mg/mL Inj IV SCH (18:15)
[2016-09-12] MEDS ORDERED: hydrALAZINE 20 mg/mL Inj IV PRN (22:15)
[2016-09-13] VITALS (10 sets, daily range): BP systolic 161–206; BP diastolic 62–88; PULSE 52–70; RESP 16–20; O2SAT 91–95
[2016-09-13] MEDS: ALPRAZolam 0.5 mg Tablet PO PRN ×2 (00:05→22:34)
[2016-09-13] MEDS: Heparin 5,000 Unit/mL Inj SUBQ SCH ×3 (00:19→16:40)
[2016-09-13 03:51] LABS: BASOPHILS % (AUTO) 1.1 % (0-3); EOSINOPHILS % (AUTO) 5.8 % (0-5); MONOCYTES % (AUTO) 9.2 % (4-12); Mean Corpuscular Hemoglobin 31.9 pg (27.0-35.0); Mean Corpuscular Volume 97.1 fL (81-100); NEUTROPHILS % (AUTO) 52.6 % (40-74); Platelet Count 140 bil/L (150-400)
--- NOTE | 2016-09-13 06:20 | NUR ---
BP/Anxiety/Tele BP 180s/80s at start of shift, given HS BP meds except Labetolol as pt's HR was mostly mid 50s. Later pt's BP 190s-200s/80s, pt denied any pain but stated she felt restless. Pt given PRN hydralazine as well as trazodone and Xanax, she fell asleep and appeared comfortable after this. BP checked a couple more times and has come down to 160s/60s. While pt slept early this morning tele was SBrady sustaining in 40s w/ PACs. sent an FYI page about this and also informed that HS labetolol was held.
[2016-09-13] MEDS: PARoxetine 20 mg Tablet PO SCH (09:27)
[2016-09-13] MEDS: ISOSORBIDE MONONITRATE 10 MG PO SCH ×2 (09:30→21:30)
--- NOTE | 2016-09-13 10:03 | DRSVH ---
PROCEDURE: US RENAL WITH ARTERIES DUPLEX DOPPLER SONOGRAM, LIMITED INDICATIONS: severe HTN TECHNIQUE: Real time scanning was performed of both kidneys, followed by Color and pulsed Doppler in terrogation of the renal vessels. COMPARISON: [facility], US, ABDOMEN SONOGRAM, 10/11/2015, 8:58. FINDINGS: Aortic peak systolic velocity: 76 cm/s. Right side: Freeman-scale imaging: Kidney is 11.8 cm long; renal cortical thickness is 1.6 cm. No hydronephrosis. No nephrolithiasis. Renal cortex is normal in echogenicity. No suspicious solid renal masses. Proximal renal artery peak systolic velocity: 152 cm/s. Mid renal artery peak systolic velocity: 70 cm/s. Distal renal artery peak systolic velocity: 47 cm/s. Renal vein: Patent, without thrombus. Peak renal/aortic ratio (RAR): 2.0. Left side: Freeman-scale imaging: Kidney is 10.3 cm long; renal cortical thickness is 1.2 cm. No hydronephrosis. No nephrolithiasis. Renal cortex is normal in echogenicity. No suspicious solid renal masses. Sma ll kidneys is redemonstrated. Proximal renal artery peak systolic velocity: 175 cm/s. Mid-renal artery peak systolic velocity: 94 cm/s. Distal renal artery peak systolic velocity: 41 cm/s. Renal vein: Patent, without thrombus. Peak renal/aortic ratio (RAR): 2.3. IMPRESSION: 1. No renal arterial stenosis. 2. Small left renal cortical cyst redemonstrated. Dictated by: Taras Raymond [facility] Interpreted: Marielos Toth MD on 09/13/2016 at 10:00 Transcribed by: MAGGIE on 09/13/2016 at 10:02 Approved by: Marielos Toth M.D. on 09/13/2016 at 12:46
--- NOTE | 2016-09-13 12:48 | PCM.PNMED ---
Subjective Date of Service Sep 13, 2016 Subjective Patient is a 70 year old female with a history of NC, CAD, cardiac stent placement, COPD, and GERD presents to the ER via EMS due to a day of chest tightness, with acute shortness of breath onset today. She reports that her current symptoms feel similar to prior COPD exacerbations. She reports general malaise for the past few days, as well as orthopnea, which is better on sitting up, paroxysmal nocturnal dyspnea, wheezing, and some edema. She reports a chronic cough with clear sputum, but reports this is unchanged. She denies URI symptoms or sick contacts. Patient denies pain with deep inspiration, fever, chills, She takes ASA daily. NTG and ASA administered en route. Overnight events: No acute overnight events. Today: Patient was lying in bed in no acute distress. She denies Headache, chest pain, shortness of breath, abdominal pain, nausea, vomiting, constipation , diarrhea. Exam Vital Signs Vital Sign - Last Date Time Temp Pulse Resp B/P Pulse Ox O2 Delivery O2 Flow Rate FiO2 09/13/16 03:14 37.1 54 20 167/69 94 Room Air 09/11/16 04:35 1.00 Intake and Output 09/12/16 09/12/16 09/13/16 Cumulative From/Thru 15:00 23:00 07:00 09/10/16 08:20 - 09/13/16 04:27 Intake Total 1000 ml 0 ml 3910 ml Output Total 850 ml 1250 ml 5300 ml Balance 150 ml -1250 ml -1390 ml Intake Oral 1000 ml 0 ml 2910 ml IV Total 1000 ml Output Urine Total 850 ml 1250 ml 5300 ml # Voids 1 # Bowel Movements 0 0 0 Exam General: Alert, Oriented X3, Cooperative, No Acute Distress Head: Normocephalic, atraumatic. External ears normal.Right sided carotid bruit present. Eyes: PERRLA, EOMI. Anicteric sclerae. Mouth: Mouth Normal, Mucous Membranes Moist/[place] Neck: Neck supple with full range of motion. Chest & Lungs: Crackles bilateral bases Cardiovascular: Regular Rate/Rhythm, Normal S1, Normal S2, No Murmurs/Rubs/ Gallops Abdomen: Non-tender, Non-distended, No masses, Normoactive bowel tones, Soft, moderate abdominal bruit. Musculoskeletal: Normal Range of Motion Extremities: Mild bilat pedal edema Neurological: Grossly Neurologically Intact, Normal Speech IVs and Medications Medications Reviewed: Medications were reviewed in detail Lab and Diagnostics Result Diagram: 09/13/1630409/13/16304 Assessment & Plan Patient is a 70 year old female with a history of NC, CAD, cardiac stent placement, COPD, and GERD presents to the ER via EMS due to a day of chest tightness, with acute shortness of breath onset today. Admitted for CHF exacerbation and hypertensive emergency. 1. Acute systolic HF with reduced ejection fraction. Present on admission. - Echo 05/07/12 showed EF 55-60%, moderate LA dilation, trace MR. She presents with pedal edema, shortness of breath on exertion, orthopnea, and paroxysmal nocturnal dyspnea in the context of a significant cardiac history. CXR showed likely pulmonary edema. BNP was 19,000. Currently BNP 24,000. - Received Lasix 40 mg IV in ED. worsening renal function will most likely discontinue Lasix. - Echocardiogram showed EF 45-50%. - Monitor I/O - Daily standing weights - We will start labetalol 100 mg twice a day - We will start chlorthalidone 25 mg daily - We will increase lisinopril 10 mg twice a day starting tomorrow. 2. Hypertensive emergency, acute. Present on admission. Improving. - Pt presented with BP 231/90, with signs of MOHAMUD and elevated transaminases. Received Labetalol 40 mg IV total and Lisinopril 20 mg, as well as Metoprolol 50 mg. If her blood pressure does not improve, will have to start nicardipine or labetalol drip. - Continue to monitor blood pressure - Discontinuing home medications. - Renal artery duplex scan done along with a renal ultrasound results pending. - Uric acid, plasma renin activity, aldosterone level pending. 3. Acute kidney injury. Present on admission. active and worsening.. - Likely secondary to CHF exacerbation vs hypertensive emergency. - Creatinine on admission 1.55 currently 1.86. - Will avoid nephrotoxic medications while treating both underlying conditions. - Dr. Leong with nephrology following, time and recommendations appreciated. 4. Leukocytosis, acute. Present on admission. improved. - Pt presents with WBC 12.6. No fevers or signs of infection. UA negative, CXR more suspicious for pulmonary edema. Will continue to monitor. - Procalcitonin negative. - Monitor CBC 5. COPD, present on admission. Active. - Some suspicion for COPD exacerbation, but given her history and presentation, her shortness of breath is more likely CHF. - Duoneb q4h PRN - Albuterol neb q2h PRN - Advise she stop smoking cigarettes. 6. Hyperglycemia, acute. Present on admission. controlled. - Glucose 156 on admission. - A1c ordered - Continue to monitor glucose 7. Elevated transaminases, acute. Present on admission. - Likely secondary to hypertensive emergency. - Monitor LFTs 8. Anxiety and depression - Continue home alprazolam, paroxetine, trazodone 9. Coronary artery disease - Continue aspirin and Plavix and atorvastatin 10 .Grave's disease s/p thyroidectomy - Continue home levothyroxine 11. Other Chronic Conditions - [place] - GERD - Stroke 12. Chronic Diastolic heart failure, present on admission. active. - Bowel regimen as needed - Antiemetic as needed INPATIENT: Patient is admitted under inpatient status with expected length of stay greater than 2 midnights due to severity of presenting symptoms, risk of adverse event, and complexity of treatment plan. Likely home tomorrow. Pain Evaluation: Adequate Pain Control VTE Prophylaxis: Sub-Q Heparin (Unfractionated) VTE Mechanical Devices: Intermittant Pneumatic CD Resuscitation Status: CPR: Attempt Resuscitation Time spent 35 minutes Attending Statement Patient was seen and examined with house staff. Agree with all attached documentation. AVRUN UNGER DO Sep 13, 2016 06:57 Ronald Mckeon MD Sep 14, 2016 15:01
--- NOTE | 2016-09-13 16:11 | NUR ---
Arranged follow up hospital appointment 09/21 check in at 1030 for appointment with .
--- NOTE | 2016-09-13 16:17 | PCM.PNMED ---
Subjective Date of Service Sep 13, 2016 Subjective Patient's blood pressure has had some slight improvement with the institution of chlorthalidone. She denies any headache, chest pain, or breathing problems. Her renal duplex scan was reviewed and there is no evidence of any hemodynamically significant stenosis. Exam Vital Signs Vital Sign - Last Date Time Temp Pulse Resp B/P Pulse Ox O2 Delivery O2 Flow Rate FiO2 09/13/16 11:49 36.5 16 161/65 94 Room Air 09/13/16 10:08 52 09/11/16 04:35 1.00 Intake and Output 09/12/16 09/12/16 09/13/16 Cumulative From/Thru 15:00 23:00 07:00 09/10/16 08:20 - 09/13/16 04:27 Intake Total 1000 ml 0 ml 3910 ml Output Total 850 ml 1250 ml 5300 ml Balance 150 ml -1250 ml -1390 ml Intake Oral 1000 ml 0 ml 2910 ml IV Total 1000 ml Output Urine Total 850 ml 1250 ml 5300 ml # Voids 1 # Bowel Movements 0 0 0 Exam Neck is supple without adenopathy thyromegaly or jugular venous distention. Lungs were clear to auscultation. Heart is regular rhythm with a soft systolic murmur. Abdomen is soft without any tenderness or rebound guarding masses or hepatosplenomegaly. Extremities do not show any evidence of any clubbing, cyanosis, or edema. Lab and Diagnostics Result Diagram: 09/13/16 0305 09/13/16 0305 Assessment & Plan Impression #1 hypertension with hypertensive heart disease and hypertensive nephrosclerosis #2 stage III kidney disease Recommendations #1 of lites and lisinopril 10 mg twice a day. Most likely she can be discharged tomorrow. VTE Prophylaxis: Sub-Q Heparin (Unfractionated) VTE Mechanical Devices: Intermittant Pneumatic CD Resuscitation Status: CPR: Attempt Resuscitation Damian Leong DO Sep 13, 2016 16:17
--- NOTE | 2016-09-13 16:47 | NUR ---
STUDENT NURSE NOTE Pt has been comfortable and pain free all day. Her main concern has been when she will be able to leave the hospital. She was visited by family throughout the day, including her granddaughter and . She self reports that she is feeling much better than she had been and is getting her appetite back. Pt was NPO for procedure this AM but ate lunch and tolerated meal well. Pt has been hypertensive all day, and is aware. Currently working on a plan to adjust medications pt currently takes for hypertension. Addendum: 09/13/16 at 1816 by LEDA SAHU RN Agree with Student RN note. Patient vital signs stable other than the hypertension mentioned above. Patient denies pain/discomfort. Family at bedside and call light within patient reach.
[2016-09-14 00:04] VITALS: BP 168/71; O2SAT 94
[2016-09-14] MEDS: Heparin 5,000 Unit/mL Inj SUBQ SCH ×2 (00:11→09:27)
[2016-09-14 03:19] VITALS: BP 175/77; PULSE 67; RESP 16; O2SAT 90
[2016-09-14 04:04] LABS: Mean Corpuscular Hemoglobin 30.7 pg (27.0-35.0); Mean Corpuscular Volume 96.6 fL (81-100)
[2016-09-14 04:33] VITALS: BP 164/71; PULSE 58; O2SAT 94
[2016-09-14 06:19] VITALS: PULSE 70
--- NOTE | 2016-09-14 07:24 | NUR ---
BP/Agitation SBP 200s at start of shift, given HS meds, HR stable at 60s-70s. SBP then fluctuating between 160s-170s. Pt agitated last night, but appeared to sleep comfortably after HS Xanax given.
[2016-09-14 08:00] VITALS: PULSE 62
[2016-09-14 09:20] VITALS: BP 164/66; PULSE 68; RESP 16; O2SAT 90
[2016-09-14] MEDS: PARoxetine 20 mg Tablet PO SCH (09:26)
[2016-09-14] MEDS: ISOSORBIDE MONONITRATE 10 MG PO SCH (09:27)
--- NOTE | 2016-09-14 09:58 | PCM.PNMED ---
Subjective Date of Service Sep 14, 2016 Subjective Patient's blood pressures a bit better today. She has had a slight increase her BUN/creatinine but I feel this is more due to normalization of her blood pressure than anything else. She denies any headache, chest pain, or shortness of breath. Exam Vital Signs Vital Sign - Last Date Time Temp Pulse Resp B/P Pulse Ox O2 Delivery O2 Flow Rate FiO2 09/14/16 09:20 36.8 68 16 164/66 90 Room Air 09/11/16 04:35 1.00 Intake and Output 09/13/16 09/13/16 09/14/16 Cumulative From/Thru 15:00 23:00 07:00 09/10/16 08:20 - 09/14/16 05:15 Intake Total 1300 ml 400 ml 5610 ml Output Total 950 ml 1700 ml 7950 ml Balance 350 ml -1300 ml -2340 ml Intake Oral 1300 ml 400 ml 4610 ml IV Total 1000 ml Output Urine Total 950 ml 1700 ml 7950 ml # Voids 1 # Bowel Movements 1 0 1 Exam HEENT examination is remarkable for pale sclera. Neck supple without adenopathy thyromegaly or jugular venous distention. Lungs are clear to auscultation. Heart is regular rhythmical with a soft systolic murmur. Abdomen soft with mild tenderness rebound guarding masses or hepatosplenomegaly. Extremities do not show any evidence of any clubbing cyanosis or edema. Skin turgor is good. Lab and Diagnostics Result Diagram: 09/14/16 0345 09/14/16 0345 Assessment & Plan Impression #1 hypertension with hypertensive heart disease and hypertensive nephrosclerosis #2 chronic kidney disease stage III Recommendations #1 from my point of view she can go home today or to discharge I would like to increase her lisinopril to 20 mg twice a day. I would like her to follow-up in my office in approximately 3-4 weeks. VTE Prophylaxis: Sub-Q Heparin (Unfractionated) VTE Mechanical Devices: Intermittant Pneumatic CD Resuscitation Status: CPR: Attempt Resuscitation Damian Leong DO Sep 14, 2016 09:58
--- NOTE | 2016-09-14 13:06 | PCM.DIMED ---
VARUN UNGER DO 09/14/16 1306: Discharge Instructions Date of Service Sep 14, 2016 Dates of Hospitalization Sep 10, 2016 at 10:21 Discharge Diagnosis Discharge Diagnosis 1. Acute systolic HF with reduced ejection fraction. Present on admission. 2. Hypertensive emergency, acute. Present on admission. Improving. 3. Acute kidney injury. Present on admission. active and worsening.. 4. Leukocytosis, acute. Present on admission. improved. 5. COPD, present on admission. controlled. 6. Hyperglycemia, acute. Present on admission. controlled. 7. Elevated transaminases, acute. Present on admission. improved. 8. Anxiety and depression 9. Coronary artery disease 10 .Grave's disease s/p thyroidectomy 11. Chronic Diastolic heart failure, present on admission. controlled.. Other Chronic Conditions - [place] - GERD - Stroke Medication Instructions New medications: Labetalol 100 mg twice a day. Increase Lisinopril 20 mg from once a day to twice a day. (Morning and Night) chlorthalidone 25 mg daily Stop taking: Metoprolol 50 mg BID. Lisinopril 20 daily (increase to twice per day, morning and night) Continue home medications: Albuterol Alprazolam 0.5 mg at night as needed Aspirin 81 mg daily Atorvastatin 80 mg daily Clopidogrel 75 mg daily Fluticasone Isosorbide 10 mg twice a day Levothyroxine 75 Mcg daily Metoprolol tartrate 50 BID Paroxetine 40 mg at night Trazodone 100 mg at night Diet Heart Healthy Activity No restrictions Call your provider Fever or Chills, Shortness of breath, Bleeding, Chest pain, Vomitting, Excessive diarrhea, Weakness (unilateral) Patient Instructions Follow up with your primary care provider or we can make you a referral to the [facility] residency clinic. Please make an appointment early next week, preferably Sunday or Sunday, for blood pressure check and creatinine level. Please follow up with Dr. Leong with nephrology in 2-4 weeks time. You will need a creatinine level for that visit as well. Follow-up plan Follow up with your primary care provider or we can make you a referral to the [facility] residency clinic. Please make an appointment early next week, preferably Sunday or Sunday, for blood pressure check and creatinine level. Please follow up with Dr. Leong with nephrology in 2-4 weeks time. You will need a creatinine level for that visit as well. New medications: Labetalol 100 mg twice a day. Increase Lisinopril 20 mg from once a day to twice a day. (Morning and Night). Chlorthalidone 25 mg daily. Follow-up Provider: [facility] Residency Clinic Follow-up with PCP in: 1 week (Please get a CMP 1-2 days before your appointment.) Provider: Damian Leong DO Follow-up in: 3 weeks (Please get a CMP 1-2 days before your appointment. 2-4 weeks. ) Ronald Mckeon MD 09/14/16 1516: Discharge Instructions Attending's Statement Patient was seen and examined with house staff. Agree with all attached documentation. VARUN UNGER DO Sep 14, 2016 13:06 Ronald Mckeon MD Sep 14, 2016 15:16
[2016-09-14] MEDS ORDERED: LISI-567 PO (13:09)
[2016-09-14] MEDS ORDERED: LABE100T4 PO (13:09)
[2016-09-14] MEDS ORDERED: HYG25 PO (13:09)
--- NOTE | 2016-09-14 14:15 | NUR ---
Discharge Patient denies any pain/ discomfort/ dyspnea. Discharge instructions and paper Rx printed and reviewed verbally with patient. All questions answered. IV DC'd intact. Patient left unit via WC with all personal belongings accompanied by her and discharged home via personal vehicle.
--- NOTE | 2016-09-18 13:35 | PCM.DC.MED ---
Discharge Summary Date of Service Sep 18, 2016 Dates of Hospitalization Date of Hospital Admission Sep 10, 2016 at 10:21 Date of Discharge: Sep 14, 2016 Providers: Admitting Physician: Piyush Manrique MD Primary Care Physician: Angle Peters MD Attending Physician: Jamey Cifuentes MD Diagnosis at Time of Discharge Diagnosis at Time of Discharge 1. Acute systolic HF with reduced ejection fraction. Present on admission. 2. Hypertensive emergency, acute. Present on admission. Improving. 3. Acute kidney injury. Present on admission. active and worsening.. 4. Leukocytosis, acute. Present on admission. improved. 5. COPD, present on admission. controlled. 6. Hyperglycemia, acute. Present on admission. controlled. 7. Elevated transaminases, acute. Present on admission. improved. 8. Anxiety and depression 9. Coronary artery disease 10 .Grave's disease s/p thyroidectomy 11. Chronic Diastolic heart failure, present on admission. controlled.. Other Chronic Conditions - OH - GERD - Stroke Brief History Patient is a 70 year old female with a history of OH, CAD, cardiac stent placement, COPD, and GERD presents to the ER via EMS due to a day of chest tightness, with acute shortness of breath onset today. She reports that her current symptoms feel similar to prior COPD exacerbations. She reports general malaise for the past few days, as well as orthopnea, which is better on sitting up, paroxysmal nocturnal dyspnea, wheezing, and some edema. She reports a chronic cough with clear sputum, but reports this is unchanged. She denies URI symptoms or sick contacts. Patient denies pain with deep inspiration, fever, chills, She takes ASA daily. NTG and ASA administered en route. Hospital Course Patient is a 70 year old female with a history of OH, CAD, cardiac stent placement, COPD, and GERD presents to the ER via EMS due to a day of chest tightness, with acute shortness of breath onset today. Admitted for CHF exacerbation and hypertensive emergency. 1. Acute systolic HF with reduced ejection fraction. Present on admission. Improving and stable. - Echo 05/07/12 showed EF 55-60%, moderate LA dilation, trace MR. She presents with pedal edema, shortness of breath on exertion, orthopnea, and paroxysmal nocturnal dyspnea in the context of a significant cardiac history. CXR showed likely pulmonary edema. BNP was 19,000. Currently BNP 24,000. - Received Lasix 40 mg IV in ED. worsening renal function will most likely discontinue Lasix. - Echocardiogram showed EF 45-50%. - Monitor I/O - Daily standing weights - We will start labetalol 100 mg twice a day - We will start chlorthalidone 25 mg daily - We will increase lisinopril 10 mg twice a day starting tomorrow. 2. Hypertensive emergency, acute. Present on admission. Improving and stable. - Pt presented with BP 231/90, with signs of MOHAMUD and elevated transaminases. Received Labetalol 40 mg IV total and Lisinopril 20 mg, as well as Metoprolol 50 mg. If her blood pressure does not improve, will have to start nicardipine or labetalol drip. - Continue to monitor blood pressure - Discontinuing home medications. - Renal artery duplex scan done along with a renal ultrasound results pending. - Uric acid, plasma renin activity, aldosterone level pending. 3. Acute kidney injury. Present on admission. active and worsening. - Likely secondary to CHF exacerbation vs hypertensive emergency. - Creatinine on admission 1.55 currently 1.86. - Will avoid nephrotoxic medications while treating both underlying conditions. - Dr. Leong with nephrology following, time and recommendations appreciated. - 4. Leukocytosis, acute. Present on admission. improved. - Pt presents with WBC 12.6. No fevers or signs of infection. UA negative, CXR more suspicious for pulmonary edema. Will continue to monitor. - Procalcitonin negative. - Monitor CBC 5. COPD, present on admission. Stable. - Some suspicion for COPD exacerbation, but given her history and presentation, her shortness of breath is more likely CHF. - Duoneb q4h PRN - Albuterol neb q2h PRN - Advise she stop smoking cigarettes. 6. Hyperglycemia, acute. Present on admission. controlled. - Glucose 156 on admission. - A1c ordered - Continue to monitor glucose 7. Elevated transaminases, acute. Present on admission. - Likely secondary to hypertensive emergency. - Monitor LFTs 8. Anxiety and depression - Continue home alprazolam, paroxetine, trazodone 9. Coronary artery disease - Continue aspirin and Plavix and atorvastatin 10 .Grave's disease s/p thyroidectomy - Continue home levothyroxine 11. Other Chronic Conditions - [place] - GERD - Stroke 12. Chronic Diastolic heart failure, present on admission. active. - Bowel regimen as needed - Antiemetic as needed INPATIENT: Patient is admitted under inpatient status with expected length of stay greater than 2 midnights due to severity of presenting symptoms, risk of adverse event, and Impression #1 hypertension with hypertensive heart disease and hypertensive nephrosclerosis #2 chronic kidney disease stage III Recommendations #1 from my point of view she can go home today or to discharge I would like to increase her lisinopril to 20 mg twice a day. I would like her to follow-up in my office in approximately 3-4 weeks. Exam Vital Signs (Last) Date Time Temp Pulse Resp B/P Pulse Ox O2 Delivery O2 Flow Rate FiO2 09/14/16 09:20 36.8 68 16 164/66 90 Room Air Exam General: Alert, Oriented X3, Cooperative, No Acute Distress Head: Normocephalic, atraumatic. External ears normal.Right sided carotid bruit present. Eyes: PERRLA, EOMI. Anicteric sclerae. Mouth: Mouth Normal, Mucous Membranes Moist/[place] Neck: Neck supple with full range of motion. Chest & Lungs: Crackles bilateral bases Cardiovascular: Regular Rate/Rhythm, Normal S1, Normal S2, No Murmurs/Rubs/ Gallops Abdomen: Non-tender, Non-distended, No masses, Normoactive bowel tones, Soft, moderate abdominal bruit. Musculoskeletal: Normal Range of Motion Extremities: Mild bilat pedal edema Neurological: Grossly Neurologically Intact, Normal Speech Test 09/10/16 08:28 09/10/16 12:37 09/12/16 02:24 09/12/16 13:55 Magnesium Level 2.0mg/dL (1.6-2.6) Troponin T < 0.010ug/L (0.0-0.011) Hold Agrawal Top Tube Received (Received) Urine Color Straw (YELLOW) Urine Appearance Clear (CLEAR,HAZY) Urine pH 6.0 (5.0-8.0) Urine Specific [place] 1.006 (1.003-1.035) Urine Protein Negativemg/dL (NEG,TRACE) Urine Glucose (UA) Negativemg/dL (NEGATIVE) Urine Ketones Negativemg/dL (NEGATIVE) Urine Occult Blood Trace (NEGATIVE) Urine Nitrite Negative (NEGATIVE) Urine Bilirubin Negative (NEGATIVE) Urine Urobilinogen Normalmg/dL (NORMAL) Urine Leukocyte Esterase Negative (NEGATIVE) Urine RBC 0-2/hpf (0-2) Urine WBC 0-5/hpf (0-5) Urine Epithelial Cells Few/hpf (NONE-MOD) Urine Crystals None seen (NONE SEEN) Urine Bacteria None/hpf (NONE-FEW) Urine Hyaline Casts None/lpf (NONE) Urine Granular Casts None seen (NONE SEEN) Urine Waxy Casts None seen (NONE SEEN) Urine Red Blood Cell Casts None seen (NONE SEEN) Urine White Blood Cell Casts None seen (NONE SEEN) Urine Mucus None seen (None Seen) Urine Trichomonas None seen (NONE SEEN) Urine Yeast None (NONE SEEN) Urinalysis Comment None Urine Culture Reflexed Not indicated Total Bilirubin 0.4mg/dL (0.0-1.2) Aspartate Amino Transf (AST/SGOT) 24U/L (0-50) Alanine Aminotransferase (ALT/SGPT) 27U/L (0-32) Alkaline Phosphatase 107U/L (25-165) Pro-B-Type Natriuretic Peptide 69263nl/mL (0-301) Test 09/13/16 03:05 09/14/16 03:45 Neutrophils (%) (Auto) 52.6% (40-74) Lymphocytes (%) (Auto) 31.1% (14-46) Monocytes (%) (Auto) 9.2% (4-12) Eosinophils (%) (Auto) 5.8% (0-5) Basophils (%) (Auto) 1.1% (0-3) Uric Acid 7.2mg/dL (2.6-7.2) Total Protein 5.1g/dL (6.0-8.5) Albumin 2.6g/dL (2.9-4.4) Globulin (PEP) 2.5g/dL (2.2-3.9) Albumin/Globulin Ratio 1.0 (0.7-1.7) Awihv-9-Jzskbmngn 0.3g/dL (0.0-0.4) Rwygb-9-Nbduecebd 0.6g/dL (0.4-1.0) Beta Globulins 0.8g/dL (0.7-1.3) Gamma Globulins 0.7g/dL (0.4-1.8) Serum Monoclonal Protein Not observedg/dL Protein Electrophoresis Comment Comment (.) Protein Electrophoresis Interpret Comment (.) White Blood Count 4.7th/mm3 (3.8-10.1) Red Blood Count 3.52mil/mm3 (3.90-5.20) Hemoglobin 10.8g/dL (12.0-15.6) Hematocrit 34.0% (35.0-46.0) Mean Corpuscular Volume 96.6fL (81-100) Mean Corpuscular Hemoglobin 30.7pg (27.0-35.0) Mean Corpuscular Hemoglobin Concent 31.8% (32.0-37.0) Red Cell Distribution Width 14.5% (12.3-15.4) Platelet Count 165bil/L (150-400) Sodium Level 140mEq/L (134-144) Potassium Level 3.5mEq/L (3.5-5.2) Chloride Level 103mEq/L (97-108) Carbon Dioxide Level 24mmol/L (18-29) Blood Urea Nitrogen 39mg/dL (8-27) Creatinine 2.13mg/dL (0.57-1.00) Estimat Glomerular Filtration Rate 33mL/min (>59) Glucose Level 87mg/dL (60-99) Calcium Level 8.2mg/dL (8.5-10.1) Discharge Medications Discharge Medications Albuterol HFA (Proair HFA) 8.5 Gm Hfa.aer.ad 2 PUFFS INHALATION Q4H (Reported) Aspirin (Aspirin) 81 Mg Tablet 81 MG PO DAILY (Reported) Atorvastatin Calcium (Atorvastatin Calcium) 80 Mg Tablet 80 MG PO DAILY ( Reported) Chlorthalidone (Chlorthalidone) 25 Mg Tablet 25 MG PO DAILY Prescribed by: VARUN UNGER DO Clopidogrel (Clopidogrel) 75 Mg Tablet 75 MG PO DAILY (Reported) Isosorbide MN (Isosorbide MN) 10 Mg Tablet 10 MG PO BID (Reported) Labetalol (Labetalol) 100 Mg Tablet 100 MG PO BID Prescribed by: VARUN UNGER DO Levothyroxine (Synthroid) 75 Mcg Tablet 75 MCG PO DAILY (Reported) Lisinopril (Lisinopril) 20 Mg Tablet 20 MG PO BID Prescribed by: VARUN UNGER DO Paroxetine (Paroxetine) 40 Mg Tablet 40 MG PO HS (Reported) Trazodone (Trazodone) 100 Mg Tablet 100 MG PO HS (Reported) As needed Alprazolam (Alprazolam) 0.5 Mg Tablet 0.5 MG PO HS PRN PRN For Anxiety (Reported ) Nitroglycerin SL (Nitrostat) 0.4 Mg Tab.subl 0.4 MG SL Q5MIN PRN PRN For Chest Pain (Reported) Miscellaneous Medications Fluticasone Propionate (Fluticasone Propionate) 50 Mcg/Actuation [place].susp 15.8 ML NS (Reported) Additional med instructions New medications: Labetalol 100 mg twice a day. Increase Lisinopril 20 mg from once a day to twice a day. (Morning and Night) chlorthalidone 25 mg daily Stop taking: Metoprolol 50 mg BID. Lisinopril 20 daily (increase to twice per day, morning and night) Continue home medications: Albuterol Alprazolam 0.5 mg at night as needed Aspirin 81 mg daily Atorvastatin 80 mg daily Clopidogrel 75 mg daily Fluticasone Isosorbide 10 mg twice a day Levothyroxine 75 Mcg daily Metoprolol tartrate 50 BID Paroxetine 40 mg at night Trazodone 100 mg at night Followup Plan Follow-up plan Follow up with your primary care provider or we can make you a referral to the [facility] residency clinic. Please make an appointment early next week, preferably Sunday or Sunday, for blood pressure check and creatinine level. Please follow up with Dr. Leong with nephrology in 2-4 weeks time. You will need a creatinine level for that visit as well. New medications: Labetalol 100 mg twice a day. Increase Lisinopril 20 mg from once a day to twice a day. (Morning and Night). Chlorthalidone 25 mg daily. Discharge Diet: Heart Healthy Discharge Activity: No restrictions Patient Instructions Follow up with your primary care provider or we can make you a referral to the [facility] residency clinic. Please make an appointment early next week, preferably Sunday or Sunday, for blood pressure check and creatinine level. Please follow up with Dr. Leong with nephrology in 2-4 weeks time. You will need a creatinine level for that visit as well. Follow-up Provider: [facility] Residency [facility] Follow-up with PCP in: 1 week (Please get a CMP 1-2 days before your appointment.) Provider: Damian Leong DO Follow-up in: 3 weeks (Please get a CMP 1-2 days before your appointment. 2-4 weeks. ) Time spent 50 MINUTES Attending Statement Patient seen and examined with housestaff. Agree with all attached documentation. VARUN UNGER DO Sep 18, 2016 13:32 Ronald Mckeon MD Sep 18, 2016 15:38
[2016-09-18 16:08] LABS: Aldosterone/Renin Ratio 0.7 (0.0-30.0); Renin Activity 2.515 ng/mL/hr (0.167-5.380)
== END 2016-09-14 14:58 | disposition home or self-care (01) | DRG 292 ==
LOC: SED 08:11 → OBSVTOIN 10:21 → MPC 10:21 → INTOOBSV 10:21 → PCC 11:03
PROVIDERS: ADMIT Family Medicine; ATTEND Internal Medicine
DX: I50.21 Acute systolic (congestive) heart failure (principal); I16.1 Hypertensive emergency; N17.9 Acute kidney failure, unspecified; J44.1 Chronic obstructive pulmonary disease with (acute) exacerbation; E46 Unspecified protein-calorie malnutrition; Z68.1 Body mass index [BMI] 19.9 or less, adult; I13.0 Hypertensive heart and chronic kidney disease with heart failure and stage 1 through stage 4 chronic kidney disease, or unspecified chronic kidney disease; I50.32 Chronic diastolic (congestive) heart failure; Z79.82 Long term (current) use of aspirin; I25.2 Old myocardial infarction; Z98.61 Coronary angioplasty status; F17.210 Nicotine dependence, cigarettes, uncomplicated; R73.9 Hyperglycemia, unspecified; F41.9 Anxiety disorder, unspecified; F32.9 Major depressive disorder, single episode, unspecified; I25.10 Atherosclerotic heart disease of native coronary artery without angina pectoris; E05.00 Thyrotoxicosis with diffuse goiter without thyrotoxic crisis or storm; N18.3 Chronic kidney disease, stage 3 (moderate)

== ENCOUNTER 2016-09-18 11:40 | Observation (INO) | payer MEDICARE ==
[~2016-09-18] VITALS: Ht 172.7 cm; Wt 45.2 kg
[~2016-09-18 11:40] MED LIST changes: -0.9% Sodium Chloride 1,000 ML IV ONE; +HYG25 PO; +LABE100T4 PO; -METO50TA3 PO; -Ondansetron 2 mg/mL 2 mL Inj IVPUSH ONE
[2016-09-18 11:44] VITALS: BP 88/51; PULSE 58; RESP 20; O2SAT 99
--- NOTE | 2016-09-18 12:53 | ED.REPORT ---
HPI-General Illness Date of Service Sep 18, 2016 ED Provider: Gianni Chaves MD 70 year old female with a history of MA, CAD, COPD, and HTN presents to the ER referred from her PCP due to low blood pressure. She reports that she went into her primary care doctor for chest pain. However, patient currently denies chest pain, shortness of breath, dizziness, and any other symptoms. Patient was recently admitted to the hospital for acute heart failure and hypertensive emergency. Upon discharge she was started on Labetalol and her Lisinopril dose was increased. Patient is a poor historian. Nursing Notes Stated Complaint: LOW BLOOD PRESSURE Chief Complaint: Dysrhythmia/Cardiac Nursing Notes Reviewed: Yes Allergies: Coded Allergies: Iodine and Iodide Containing Produc (Verified Allergy, Severe, 09/18/16) Adhesives (Verified Allergy, Intermediate, 09/18/16) Uncoded Allergies: NKDA (Allergy, Unknown, 04/28/04) NKFA (Allergy, Unknown, 04/28/04) Scheduled Albuterol HFA (Proair HFA) 8.5 Gm Hfa.aer.ad 2 PUFFS INHALATION Q4H Aspirin (Aspirin) 81 Mg Tablet 81 MG PO DAILY Atorvastatin Calcium (Atorvastatin Calcium) 80 Mg Tablet 80 MG PO DAILY Chlorthalidone (Chlorthalidone) 25 Mg Tablet 25 MG PO DAILY Clopidogrel (Clopidogrel) 75 Mg Tablet 75 MG PO DAILY Isosorbide MN (Isosorbide MN) 10 Mg Tablet 10 MG PO BID Labetalol (Labetalol) 100 Mg Tablet 100 MG PO BID Levothyroxine (Synthroid) 75 Mcg Tablet 75 MCG PO DAILY Lisinopril (Lisinopril) 20 Mg Tablet 20 MG PO BID Paroxetine (Paroxetine) 40 Mg Tablet 40 MG PO HS Trazodone (Trazodone) 100 Mg Tablet 100 MG PO HS Scheduled PRN Alprazolam (Alprazolam) 0.5 Mg Tablet 0.5 MG PO HS PRN PRN For Anxiety Fluticasone Propionate (Fluticasone Propionate) 50 Mcg/Actuation [place].susp 2 SPRAY NOSTRIL daiy PRN PRN allergies Nitroglycerin SL (Nitrostat) 0.4 Mg Tab.subl 0.4 MG SL Q5MIN PRN PRN For Chest Pain General Time Seen by MD: 12:14 Chief Complaint Other (Low Blood Pressure) Hx Obtained From: Patient Arrived By: Walk-in Sudden in Onset?: No Onset Occurred: Just prior to arrival Symptom Duration: Since onset Associated with: Denies: Chest pain, Dizziness, Shortness of breath Pertinent Negative: Pt denies other symptoms Context Related History: Reports Coronary artery disease Past Medical History Past Medical History MA Reports: COPD, Coronary artery disease, GERD, Hypertension, Stroke Reports: Depression, Thyroid disease Past Surgical History Cardiac stent placement Right rotator cuff repair Smoking History Current Every Day Smoker Review of Systems Full Review of Systems Constitutional: Denies: Chills, Fever Respiratory: Denies: Non-productive cough, Shortness of breath Cardiovascular: Denies: Chest pain GI: Denies: Nausea, Vomiting Musculoskeletal: Denies: Extremity pain, Neck pain Skin: Denies Diaphoresis Complete sys rev & neg: except as marked. Physical Exam Vital Signs Vital Signs Date Time Temp Pulse Resp B/P Pulse Ox O2 Delivery O2 Flow Rate FiO2 09/18/16 14:18 70 15 147/47 90 Room Air 09/18/16 11:44 36 58 20 88/51 99 Room Air Initial VS: Reviewed Head / Eyes: Atraumatic, Normocephalic Neck: Supple, Non-tender, Full range of motion Abdomen / GI: Soft, Non-tender, No guarding, No rebound, No distention Extremities: Vascular intact, Neuro intact, No swelling, No tenderness Skin: Warm, Dry, No cyanosis Neurologic: Alert, Oriented, Nonfocal Psychiatric: Mood/affect normal, Behavior normal, Normal thought content General/Constitutional: Awake, Alert, No acute distress, Well developed, Well nourished Diminished Breath Sounds: Positive: Decreased bilateral Wheezing / Retractions: Positive: Wheezing moderate Cardiovascular: Heart rate NL, Regular rhythm, Heart sounds NL, Cap refill not delayed, Peripheral circulation NL Interpretation & Diagnostics Lab Results Interpretation Result Diagram: 09/18/16 1238 09/18/16 1238 Test 09/18/16 12:38 White Blood Count 7.3th/mm3 (3.8-10.1) Red Blood Count 4.26mil/mm3 (3.90-5.20) Hemoglobin 13.5g/dL (12.0-15.6) Hematocrit 41.8% (35.0-46.0) Mean Corpuscular Volume 98.1fL (81-100) Mean Corpuscular Hemoglobin 31.7pg (27.0-35.0) Mean Corpuscular Hemoglobin Concent 32.3% (32.0-37.0) Red Cell Distribution Width 14.6% (12.3-15.4) Platelet Count 194bil/L (150-400) Neutrophils (%) (Auto) 71.1% (40-74) Lymphocytes (%) (Auto) 17.8% (14-46) Monocytes (%) (Auto) 7.0% (4-12) Eosinophils (%) (Auto) 2.6% (0-5) Basophils (%) (Auto) 1.4% (0-3) Sodium Level 138mEq/L (134-144) Potassium Level 5.1mEq/L (3.5-5.2) Chloride Level 103mEq/L (97-108) Carbon Dioxide Level 22mmol/L (18-29) Blood Urea Nitrogen 46mg/dL (8-27) Creatinine 2.50mg/dL (0.57-1.00) Estimat Glomerular Filtration Rate 27mL/min (>59) Glucose Level 102mg/dL (60-99) Calcium Level 9.5mg/dL (8.5-10.1) Magnesium Level 2.4mg/dL (1.6-2.6) Total Bilirubin 0.6mg/dL (0.0-1.2) Aspartate Amino Transf (AST/SGOT) 26U/L (0-50) Alanine Aminotransferase (ALT/SGPT) 24U/L (0-32) Alkaline Phosphatase 126U/L (25-165) Troponin T < 0.010ug/L (0.0-0.011) Total Protein 7.3g/dL (6.4-8.4) Albumin 3.9g/dL (3.4-5.0) ECG Interpretation ECG Interpretation: Sinus rhythm, rate 56 RBBB Nonspecific T wave changes about the inferior leads Borderline ST depression No ST segment elevation When compared to ECG 09/10/2016 lateral ECG changes mor pronounced, and patient is now bradycardic. Time: 13:45 Interpreted by: ED physician X-Ray Chest Interpretation Chest Xray Interpretation: IMPRESSION: Hyperexpansion suggestive of COPD. Dictated by: Yoon Sainz M.D. on 09/18/2016 at 12:53 Approved by: Yoon Sainz M.D. on 09/18/2016 at 12:53 View: Portable, 1 view Interpretation / Wet Read by: Interpret - Radiologist Re-Eval/Medical Decision Med Decision/Clinical Course 70 year old female with a history of MA, CAD, COPD, and HTN presents to the ER referred from her PCP due to low blood pressure. She reports that she went into her primary care doctor for chest pain. However, patient currently denies chest pain, shortness of breath, dizziness, and any other symptoms. Patient was recently admitted to the hospital for acute heart failure and hypertensive emergency. Upon discharge she was started on Labetalol and her Lisinopril dose was increased. Patient is a vague historian and from what I can gather she was sent here due to low blood pressure at outpatient clinic. Upon arrival the patient complains of lightheadedness and is significantly hypotensive with a systolic blood pressure in the 70s improving to the 80s when laying down. EKG was obtained and interpreted by myself as documented above. Upon chart review the patient was recently admitted with hypertensive emergency requiring IV labetalol and his recently had new blood pressure medication started. She is now bradycardic and hypotensive. Laboratory studies were notable for BUN of 46 and creatinine of 2.5 which is significantly elevated from prior. Electrolytes were unremarkable. CBC was unremarkable. Patient was treated with an IV fluid bolus and her blood pressure improved dramatically. She maintained normal mentation and denied any chest pain or shortness of breath. I suspect that the patient's profound hypotension is likely related to her new antihypertensive regimen. I am concerned in regards to the patient's worsening kidney function in the setting of her recent hypertensive emergency and now episodes of profound hypotension. I feel that the patient requires admission for further management of her blood pressure and evaluation of her renal function. Patient was discussed with admitting hospitalist transferred in stable condition. Source of Hx: Old records Time of Eval: 13:02 Re-Evaluation/Progress Note: Updated patient on the plan of care. Re-Evaluation/Progress Note: Discussed lab and radiology results and need for admission. Patient is amenable to the plan. All other questions addressed. Consultation : Referral / Consult Name: Shade Flannery MD Consulted With: Hospitalist Call Returned at: 14:15 Song Lyricist: Agrees with eval, Agrees with plan, Accepts admit Counseled Regarding: Diagnosis, Lab results, Need for admission Discharge & Departure Primary Impression: Hypotension Hypotension type: unspecified hypotension type Qualified Code: I95.9 - Hypotension, unspecified Additional Impressions: Bradycardia Acute renal failure Acute renal failure type: unspecified Qualified Code: N17.9 - Acute kidney failure, unspecified Chest pain Chest pain type: unspecified Qualified Code: R07.9 - Chest pain, unspecified Disposition: ADMITTED TO HOSPITAL Discharge Condition All VS Reviewed: Yes Condition: Stable Referrals: Angle Peters MD (PCP) Crit Care Except Billable Proc Time Spent: 105-134 minutes Services Performed: Patient management by me, Time spent at bedside, Reviewing test results, Reviewing imaging, Discussing patient care, Documentation in record, Time with fam/surrogate Scribe Attestation Portions of this note were transcribed by Nicola Hartmann. I, Dr. Chaves, personally performed the history, physical exam and medical decision-making; I reviewed and confirmed the accuracy of the information in the transcribed note. Signed by: Jose Almaraz, 09/18/2016 and 14:15 copies to: Angle Peters MD, Beck O MD Sep 18, 2016 12:53 NICOLA HARTMANN Sep 18, 2016 13:07
--- NOTE | 2016-09-18 12:55 | DRSVH ---
PROCEDURE: X-RAY CHEST ONE VIEW, PORTABLE ([id number]) INDICATIONS: weakness TECHNIQUE: One view of the chest was acquired. COMPARISON: [facility], CR, XR CHEST 1VW (PORTABLE), 09/12/2016, 12:27. FINDINGS: Surgical changes and devices: None. Lungs and pleura: The lungs are hyperexpanded. No effusions or consolidations. Mediastinum: Mediastinal contours appear normal. Heart size is normal. Bones and chest wall: No suspicious bony lesions. Overlying soft tissues appear unremarkable. IMPRESSION: Hyperexpansion suggestive of COPD. Dictated by: Yoon Sainz M.D. on 09/18/2016 at 12:53 Approved by: Yoon Sainz M.D. on 09/18/2016 at 12:53
[2016-09-18 12:58] LABS: BASOPHILS % (AUTO) 1.4 % (0-3); EOSINOPHILS % (AUTO) 2.6 % (0-5); Mean Corpuscular Hemoglobin 31.7 pg (27.0-35.0); Mean Corpuscular Volume 98.1 fL (81-100); NEUTROPHILS % (AUTO) 71.1 % (40-74); Platelet Count 194 bil/L (150-400)
[2016-09-18] MEDS ORDERED: 0.9% Sodium Chloride 1,000 ML IV ONE (13:10)
[2016-09-18 13:43] LABS: TROPONIN T < 0.010 ug/L (0.0-0.011)
[2016-09-18 13:48] LABS: Magnesium 2.4 mg/dL (1.6-2.6)
[2016-09-18] MEDS ORDERED: Ondansetron 2 mg/mL 2 mL Inj IVPUSH PRN (14:15)
[2016-09-18] MEDS ORDERED: Polyethylene Glycol (PEG) 17 Gm Powder PO PRN (14:15)
[2016-09-18] MEDS ORDERED: Alum-Mag Hydrox-Simeth 30 mL Suspension PO PRN (14:15)
[2016-09-18 14:18] VITALS: BP 147/47; PULSE 70; RESP 15; O2SAT 90
--- NOTE | 2016-09-18 16:20 | NUR ---
Report called from ED nurse. Pt arrived via wc, transferred to bed safely SBA. Pt states she is feeling a bit light of head. She is having hot and cold spurts. Afebrile. Tele placed on pt.
[2016-09-18 18:05] VITALS: BP 165/66; PULSE 65; RESP 18; O2SAT 92
[2016-09-18] MEDS: 0.9% Sodium Chloride 1,000 ML IV SCH (18:11)
--- NOTE | 2016-09-18 18:15 | PCM.HPMED ---
Subjective Date of Service Sep 18, 2016 Primary Provider: Admitting Physician: Primary Care Physician: Angle Peters MD Attending Physician: Chief Complaint: Hypotension History of Present Illness: Qi Ford is a 70 year old female Myocardial infarct, COPD, and Hypertension presents to [facility] Emergency department referred due to Hypotension. Patient went to the Residency clinic to establish care but was transferred to the department due to low blood pressure. Patient reported dizziness and feeling unstable that she had to hold onto to things for support. She denies any loss of consciousness. She currently denies chest pain, shortness of breath. Patient was recently admitted to the hospital for acute heart failure and hypertensive emergency. Upon discharge she was started on Labetalol and her Lisinopril dose was increased. She reports compliance with her medications Case discussed with Dr Chaves, patient hypotensive 88/51 and bradycardic 58. Plan to admit for IV fluids and adjustment of medications Review of Systems: Pertinent positives as noted in HPI. All other systems were reviewed and are negative Allergies Coded Allergies: Iodine and Iodide Containing Produc (Verified Allergy, Severe, 09/18/16) Adhesives (Verified Allergy, Intermediate, 09/18/16) Uncoded Allergies: NKDA (Allergy, Unknown, 04/28/04) NKFA (Allergy, Unknown, 04/28/04) Home Medications From [facility], not yet confirmed Qi Ford. [id number] 09/18/2016 10:30 AM Page: 08/06 albuterol sulfate HFA 90 mcg/actuation aerosol inhaler inhale 1 puff by inhalation route every 4 - 6 hours as needed alprazolam 0.5 mg tablet take 1 tablet by oral route at bedtime as needed for anxiety-induced insomnia Aspirin Low Dose 81 mg tablet,delayed release take 1 tablet by oral route every day atorvastatin 80 mg tablet take 1 tablet by oral route every evening clopidogrel 75 mg tablet take 1 tablet by oral route every day fluticasone 50 mcg/actuation nasal spray,suspension inhale 2 sprays in each nostril daily by intranasal route isosorbide mononitrate 10 mg tablet take 1 tablet by oral route 2 times every day given 7 hours apart for heart lisinopril 20 mg tablet take 1 tablet by oral route every day for high blood pressure. metoprolol tartrate 50 mg tablet take 1 tablet by oral route 2 times every day with meals nitroglycerin 0.[address] 1 tablet by sublingual route at the 1st sign of attack; may repeat every 5 min until relief; if pain persists after 3 tablets in 15 min, prompt medical attention is recommended paroxetine 40 mg tablet TAKE 1 TABLET (40MG) BY ORAL ROUTE EVERY DAY FOR MOOD. Synthroid 75 mcg tablet TAKE 1 TABLET BY MOUTH EVERY DAY FOR THYROID trazodone 100 mg tablet take 1 tablet (100MG) by oral route every day at bedtime for sleep/mood Wellbutrin 75 mg tablet take 1 tablet by oral route 2 times every day PMH MN COPD Coronary artery disease GERD Stroke Depression Grave's disease s/p thyroidectomy . Surgical History Cardiac stent placement at in 2002 Right rotator cuff repair Thyroidectomy Carpal tunnel surgery Family History Father had MN, Peripheral vascular disease Mother Alzheimer's, Social History Hx Alcohol Use: Yes Hx Substance Use: Yes (marijuana) Hx Tobacco Use: Yes (10 cigarette a day.) Smoking Status: Current Every Day Smoker Living Arrangement: Alone Exam Vital Signs Vital Sign - Last Date Time Temp Pulse Resp B/P Pulse Ox O2 Delivery O2 Flow Rate FiO2 09/18/16 11:44 36 58 20 88/51 99 Room Air Exam General: Alert, Oriented X3, Cooperative, No acute Distress Eyes: PERRLA, Scleral Anicteric Mouth: Mouth Normal, Mucous Membranes Moist/[place] Neck: Supple, no Thyromegaly, trachea central. Chest & Lungs: Clear to auscultation & percussion, No adventitious breath sounds, no crackles, no wheeze Cardiovascular: Normal S1, Normal S2, No Murmurs/Rubs/Gallops, Regular Rate/ Rhythm, Murmur, Other (No JVD, no peripheral edema) Pulses: Radial (present and equal), Dorsalis Pedi (present and equal) Abdomen: Soft, Non-tender, Non-distended, Normoactive bowel tones. Musculoskeletal: Unremarkable. Normal range of motion, no swollen or erythematous joints Extremities: No edema, no cyanosis, no clubbing. Skin: No rashes. Warm and dry, no erythematous areas Neurological: Grossly neurologically intact, has generalized weakness, Normal Speech, Sensation Intact Lymphatic: Lymph nodes Cervical and Axillary not palpable. Lab and Diagnostics Labs Laboratory Tests Test 09/18/16 12:38 White Blood Count 7.3th/mm3 (3.8-10.1) Red Blood Count 4.26mil/mm3 (3.90-5.20) Hemoglobin 13.5g/dL (12.0-15.6) Hematocrit 41.8% (35.0-46.0) Mean Corpuscular Volume 98.1fL (81-100) Mean Corpuscular Hemoglobin 31.7pg (27.0-35.0) Mean Corpuscular Hemoglobin Concent 32.3% (32.0-37.0) Red Cell Distribution Width 14.6% (12.3-15.4) Platelet Count 194bil/L (150-400) Neutrophils (%) (Auto) 71.1% (40-74) Lymphocytes (%) (Auto) 17.8% (14-46) Monocytes (%) (Auto) 7.0% (4-12) Eosinophils (%) (Auto) 2.6% (0-5) Basophils (%) (Auto) 1.4% (0-3) Sodium Level 138mEq/L (134-144) Potassium Level 5.1mEq/L (3.5-5.2) Chloride Level 103mEq/L (97-108) Carbon Dioxide Level 22mmol/L (18-29) Blood Urea Nitrogen 46mg/dL (8-27) Creatinine 2.50mg/dL (0.57-1.00) Estimat Glomerular Filtration Rate 27mL/min (>59) Glucose Level 102mg/dL (60-99) Calcium Level 9.5mg/dL (8.5-10.1) Magnesium Level 2.4mg/dL (1.6-2.6) Total Bilirubin 0.6mg/dL (0.0-1.2) Aspartate Amino Transf (AST/SGOT) 26U/L (0-50) Alanine Aminotransferase (ALT/SGPT) 24U/L (0-32) Alkaline Phosphatase 126U/L (25-165) Troponin T < 0.010ug/L (0.0-0.011) Total Protein 7.3g/dL (6.4-8.4) Albumin 3.9g/dL (3.4-5.0) Result Diagram: 09/18/16 1238 09/18/16 1238 X-Rays, CTs and MRIs X-RAY CHEST ONE VIEW, PORTABLE ([id number]) INDICATIONS: weakness TECHNIQUE: One view of the chest was acquired. COMPARISON: [facility], CR, XR CHEST 1VW (PORTABLE), 09/12/2016, 12: 27. FINDINGS: Surgical changes and devices: None. Lungs and pleura: The lungs are hyperexpanded. No effusions or consolidations. Mediastinum: Mediastinal contours appear normal. Heart size is normal. Bones and chest wall: No suspicious bony lesions. Overlying soft tissues appear unremarkable. IMPRESSION: Hyperexpansion suggestive of COPD. Dictated by: Yoon Sainz M.D. on 09/18/2016 at 12:53 Approved by: Yoon Sainz M.D. on 09/18/2016 at 12:53 Assessment & Plan Qi Ford is a 70 year old female Myocardial infarct, COPD, and Hypertension presents to [facility] Emergency department referred from her PCP due to low blood pressure. 1. Hypotension. Present on admission Due to over medications. I don't see any signs of hypovolemia or GI bleeding. NO signs of infection or sepsis so far. - hold all antihypertensive and diuretics - IV fluid resuscitations - need to adjust hypertensive medications - advised patient to keep track of BP reading at home and report it to Primary doctor 2. Acute kidney injury on Chronic kidney disease Stage 3. Present on admission. - Likely secondary to pre renal azotemia from hypotension and possible hypovolemia - chronic kidney disease secondary to hypertensive heart disease and hypertensive nephrosclerosis - avoid nephrotoxic medications, holding FILEMON inhibitor for now - follow up with Dr Leong as outpatient 3. Chronic diastolic CHF exacerbation. - Echo 05/07/12 showed EF 55-60%, moderate LA dilation, trace MR. - no signs of decompensation or fluid overload - monitoring fluid status while we are giving fluids - hold diuretics for now 4 COPD - No clinical evidence of acute exacerbation - Advise she stop smoking cigarettes. 5. Anxiety and depression - Continue home alprazolam, paroxetine, trazodone 6. Coronary artery disease NO anginal or equivalent complaints but patient is a poor historian - Continue aspirin and Plavix and atorvastatin 7. Grave's disease s/p thyroidectomy - Continue home levothyroxine 8. Nicotine dependence. cessation discussed and encouraged - Nicotine patch upon request - Acetaminophen as needed for mild pain/fever/headache - Bowel regimen as needed - Antiemetic as needed Patient admitted under inpatient status with expected length of stay > 2 midnights for severity of present symptoms, complexities of treatment plan and risk for adverse event . Resuscitation Status: CPR: Attempt Resuscitation Shade Flannery MD Sep 18, 2016 14:20
--- NOTE | 2016-09-18 18:48 | NUR ---
PT SR 60s
--- NOTE | 2016-09-18 18:49 | NUR ---
Disregard previous 2 nurse notes.
--- NOTE | 2016-09-18 19:01 | NUR ---
Pt report called from [facility]. Pt arrived via wc. Transferred to bed with sba. No c/o pain. Mild SOB upon transfer. Pt vitals stable. Call light within reach. Family at bedside.
[2016-09-18 19:49] VITALS: PULSE 64
[2016-09-18 19:50] VITALS: BP 169/63; PULSE 66; RESP 18; O2SAT 94
[2016-09-18 20:00] VITALS: PULSE 63
[2016-09-19] MEDS: 0.9% Sodium Chloride 1,000 ML IV SCH ×2 (00:14→10:14)
[2016-09-19 00:34] VITALS: BP_SYST 193; BP_DIAS 53; BP_DIAS 80; PULSE 63; RESP 18; O2SAT 96
[2016-09-19 00:36] VITALS: BP 199/80
--- NOTE | 2016-09-19 07:05 | NUR ---
Activity Patient independent to bathroom, denies pain and or discomfort, however suffered insomnia. A&O able to make needs known. Bed in low position, call light within reach, saline locked taking in oral fluids.
[2016-09-19] MEDS ORDERED: ALPRAZolam 0.5 mg Tablet PO PRN (07:35)
[2016-09-19] MEDS ORDERED: Albuterol 2.5 mg/3 mL Inhalation Solution NEB SCH (07:43)
[2016-09-19 09:10] VITALS: BP 161/60; PULSE 56; RESP 20; O2SAT 100
[2016-09-19 11:24] VITALS: PULSE 63
--- NOTE | 2016-09-19 11:56 | NUR ---
Evaluation completed. Please go to "Notes" then click on "Assessments and Notes" (bottom left corner of screen). Then select appropriate discipline tab on top of screen.
--- NOTE | 2016-09-19 12:06 | NUR ---
Sheyla YANES explained and signed by patient. Copy given to patient. Jeanna CORNELIUS
--- NOTE | 2016-09-19 12:38 | NUR ---
NUTRITION ASSESSMENT: Assess: 70 YO F admitted for hypotension, bradycardia, MOHAMUD. Pt with chronic underweight status per pervious notes and EMR review. PMHX: ND, COPD, CAD, GERD, stroke, depression, Grave's disease s/p thyroidectomy. DIET: Heart Healthy, PO intake 100%. LABS: Reviewed. BUN 46, Cr 1.97, Alb 3.9. MEDICATIONS: Reviewed. GI: No BM noted. WEIGHT: 45.2 kg, BMI 15.2 kg/m2 = underweight. IBW: 63.64 kg. ESTIMATED NEEDS: Weight gain / COPD Calories: 3268-4204 kcal/day (30-40 kcal/kg BW) Protein: 75-95 g/day (1.2-1.5 kcal/kg IBW) NUTRITION DIAGNOSIS: 1) Underweight related to increased energy needs for diseased state as evidenced by chronic COPD. 2) Inadequate oral intake related to inability to maintain sufficient weight as evidenced by underweight BMI 15.2 kg/m2. INTERVENTION: 1) Continue current diet at this time as po intake of 100% should be adequate to meet pt est. needs. 2.) Consider adding supplements if needed. MONITOR/EVALUATE: PO intake, labs, weight, GI, nutrition status. Follow per moderate nutrition risk guidelines.
[2016-09-19 14:05] VITALS: BP 164/67
--- NOTE | 2016-09-19 14:32 | PCM.PNMED ---
Subjective Date of Service Sep 19, 2016 Subjective Patient seen and examined. Patient was seen to have orthostatic hypotension initially, however patients blood pressure anthony spontaneously without any intervention. Patient was placed back on her home medications with adequate control of her blood pressure. Patient was see to have a bp of 153/97 during the afternoon. It was at this time it was decided that the patient could be discharged. Exam Vital Signs Vital Sign - Last Date Time Temp Pulse Resp B/P Pulse Ox O2 Delivery O2 Flow Rate FiO2 09/19/16 14:05 164/67 09/19/16 11:24 63 09/19/16 09:10 36.6 20 100 Room Air Intake and Output 09/18/16 09/18/16 09/19/16 Cumulative From/Thru 15:00 23:00 07:00 09/18/16 11:44 - 09/19/16 05:12 Intake Total 1000 ml 200 ml 450 ml 1650 ml Output Total 300 ml 550 ml 850 ml Balance 1000 ml -100 ml -100 ml 800 ml Intake Oral 200 ml 450 ml 650 ml IV Total 1000 ml 1000 ml Output Urine Total 300 ml 550 ml 850 ml # Bowel Movements 0 0 Exam Exam General: No acute distress, well-developed, well-nourished, appropriately interactive HEENT: Normocephalic, atraumatic. External ears without defect. Pupils equal, round, and reactive to light and accommodation. Moist conjunctivae. Oropharynx with moist mucosa. Neck: Supple with full range of motion.No lymphadenopathy Cardiovascular: Regular rate and rhythm with no murmurs, rubs, or gallops appreciated Pulmonary: Clear to auscultation bilaterally with no crackles, wheezes, or rhonchi. Normal respiratory effort with no use of accessory muscles. Abdomen: Bowel tones present. Soft, nontender, nondistended. Ext: No edema, adequate capillary refil IVs and Medications Medications Reviewed: Medications were reviewed in detail Lab and Diagnostics Result Diagram: 09/18/16 1238 09/19/16 0545 X-Rays, CTs and MRIs X-RAY CHEST ONE VIEW, PORTABLE ([id number]) INDICATIONS: weakness TECHNIQUE: One view of the chest was acquired. COMPARISON: [facility], CR, XR CHEST 1VW (PORTABLE), 09/12/2016, 12: 27. FINDINGS: Surgical changes and devices: None. Lungs and pleura: The lungs are hyperexpanded. No effusions or consolidations. Mediastinum: Mediastinal contours appear normal. Heart size is normal. Bones and chest wall: No suspicious bony lesions. Overlying soft tissues appear unremarkable. IMPRESSION: Hyperexpansion suggestive of COPD. Dictated by: Yoon Sainz M.D. on 09/18/2016 at 12:53 Approved by: Yoon Sainz M.D. on 09/18/2016 at 12:53 Assessment & Plan Qi Ford is a 70 year old female Myocardial infarct, COPD, and Hypertension presents to [facility] Emergency department referred from her PCP due to low blood pressure. 1. Hypotension - resolved - currently hypertensive. will 2. Acute kidney injury on Chronic kidney disease Stage 3. Present on admission. - improved - pt at baseline -will encourage hydration 3. Chronic diastolic CHF exacerbation. - Echo 05/07/12 showed EF 55-60%, moderate LA dilation, trace MR. - no signs of decompensation or fluid overload 4 COPD - No clinical evidence of acute exacerbation - Advise she stop smoking cigarettes. 5. Anxiety and depression - Continue home alprazolam, paroxetine, trazodone 6. Coronary artery disease NO anginal or equivalent complaints but patient is a poor historian - Continue aspirin and Plavix and atorvastatin 7. Grave's disease s/p thyroidectomy - Continue home levothyroxine 8. Nicotine dependence. cessation discussed and encouraged - Nicotine patch upon request - Acetaminophen as needed for mild pain/fever/headache - Bowel regimen as needed - Antiemetic as needed Patient admitted under inpatient status with expected length of stay > 2 midnights for severity of present symptoms, complexities of treatment plan and risk for adverse event . Resuscitation Status: CPR: Attempt Resuscitation Brando Bonilla MD Sep 19, 2016 14:32
--- NOTE | 2016-09-19 14:38 | PCM.DC.MED ---
Discharge Summary Date of Service Sep 19, 2016 Dates of Hospitalization Date of Hospital Admission Sep 18, 2016 at 17:03 Date of Discharge: Sep 19, 2016 Providers: Admitting Physician: Shade Flannery MD Primary Care Physician: Angle Peters MD Attending Physician: Shade Flannery MD Diagnosis at Time of Discharge Diagnosis at Time of Discharge hypotension Procedures XRay, CTs & MRIs X-RAY CHEST ONE VIEW, PORTABLE ([id number]) INDICATIONS: weakness TECHNIQUE: One view of the chest was acquired. COMPARISON: [facility], CR, XR CHEST 1VW (PORTABLE), 09/12/2016, 12: 27. FINDINGS: Surgical changes and devices: None. Lungs and pleura: The lungs are hyperexpanded. No effusions or consolidations. Mediastinum: Mediastinal contours appear normal. Heart size is normal. Bones and chest wall: No suspicious bony lesions. Overlying soft tissues appear unremarkable. IMPRESSION: Hyperexpansion suggestive of COPD. Dictated by: Yoon Sainz M.D. on 09/18/2016 at 12:53 Approved by: Yoon Sainz M.D. on 09/18/2016 at 12:53 Brief History Qi Ford is a 70 year old female Myocardial infarct, COPD, and Hypertension presents to [facility] Emergency department referred due to Hypotension. Patient went to the Residency clinic to establish care but was transferred to the department due to low blood pressure. Patient reported dizziness and feeling unstable that she had to hold onto to things for support. She denies any loss of consciousness. She currently denies chest pain, shortness of breath. Patient was recently admitted to the hospital for acute heart failure and hypertensive emergency. Upon discharge she was started on Labetalol and her Lisinopril dose was increased. She reports compliance with her medications Case discussed with Dr Chaves, patient hypotensive 88/51 and bradycardic 58. Plan to admit for IV fluids and adjustment of medications Hospital Course Qi Ford is a 70 year old female Myocardial infarct, COPD, and Hypertension presents to [facility] Emergency department referred from her PCP due to low blood pressure. Patients blood pressure medications were held and patient was resucitated with IV fluids. Patient was additionally to see to have worsening kidney function. Patient in the am was seen hypertensive with positive orthostatics. Patient was placed back on her medication and the IV fluid was continued. Patients renal function was seen to improve from the iv fluids. Patients bood pressure improved with administration of her medication that she usually takes at home. Patients blood pressure was seen to be 153/97. Patient will be dishcharged home. She will resume all her home medications. Patient will follow up with her pmd at her convenience. . Exam Vital Signs (Last) Date Time Temp Pulse Resp B/P Pulse Ox O2 Delivery O2 Flow Rate FiO2 09/19/16 14:05 164/67 09/19/16 11:24 63 09/19/16 09:10 36.6 20 100 Room Air Test 09/18/16 12:38 09/18/16 17:59 09/19/16 05:45 White Blood Count 7.3th/mm3 (3.8-10.1) Red Blood Count 4.26mil/mm3 (3.90-5.20) Hemoglobin 13.5g/dL (12.0-15.6) Hematocrit 41.8% (35.0-46.0) Mean Corpuscular Volume 98.1fL (81-100) Mean Corpuscular Hemoglobin 31.7pg (27.0-35.0) Mean Corpuscular Hemoglobin Concent 32.3% (32.0-37.0) Red Cell Distribution Width 14.6% (12.3-15.4) Platelet Count 194bil/L (150-400) Neutrophils (%) (Auto) 71.1% (40-74) Lymphocytes (%) (Auto) 17.8% (14-46) Monocytes (%) (Auto) 7.0% (4-12) Eosinophils (%) (Auto) 2.6% (0-5) Basophils (%) (Auto) 1.4% (0-3) Magnesium Level 2.4mg/dL (1.6-2.6) Total Bilirubin 0.6mg/dL (0.0-1.2) Aspartate Amino Transf (AST/SGOT) 26U/L (0-50) Alanine Aminotransferase (ALT/SGPT) 24U/L (0-32) Alkaline Phosphatase 126U/L (25-165) Troponin T < 0.010ug/L (0.0-0.011) Total Protein 7.3g/dL (6.4-8.4) Albumin 3.9g/dL (3.4-5.0) Hold Urine Received (Received) Sodium Level 138mEq/L (134-144) Potassium Level 4.9mEq/L (3.5-5.2) Chloride Level 104mEq/L (97-108) Carbon Dioxide Level 21mmol/L (18-29) Blood Urea Nitrogen 46mg/dL (8-27) Creatinine 1.97mg/dL (0.57-1.00) Estimat Glomerular Filtration Rate 36mL/min (>59) Glucose Level 87mg/dL (60-99) Calcium Level 8.9mg/dL (8.5-10.1) Discharge Medications Discharge Medications Albuterol HFA (Proair HFA) 8.5 Gm Hfa.aer.ad 2 PUFFS INHALATION Q4H (Reported) Aspirin (Aspirin) 81 Mg Tablet 81 MG PO DAILY (Reported) Atorvastatin Calcium (Atorvastatin Calcium) 80 Mg Tablet 80 MG PO DAILY ( Reported) Chlorthalidone (Chlorthalidone) 25 Mg Tablet 25 MG PO DAILY Prescribed by: VARUN UNGER DO Clopidogrel (Clopidogrel) 75 Mg Tablet 75 MG PO DAILY (Reported) Isosorbide MN (Isosorbide MN) 10 Mg Tablet 10 MG PO BID (Reported) Labetalol (Labetalol) 100 Mg Tablet 100 MG PO BID Prescribed by: VARUN UNGRE DO Levothyroxine (Synthroid) 75 Mcg Tablet 75 MCG PO DAILY (Reported) Lisinopril (Lisinopril) 20 Mg Tablet 20 MG PO BID Prescribed by: VARUN UNGER DO Paroxetine (Paroxetine) 40 Mg Tablet 40 MG PO HS (Reported) Trazodone (Trazodone) 100 Mg Tablet 100 MG PO HS (Reported) As needed Alprazolam (Alprazolam) 0.5 Mg Tablet 0.5 MG PO HS PRN PRN For Anxiety (Reported ) Fluticasone Propionate (Fluticasone Propionate) 50 Mcg/Actuation [place].susp 2 SPRAY NOSTRIL daiy PRN PRN allergies (Reported) Nitroglycerin SL (Nitrostat) 0.4 Mg Tab.subl 0.4 MG SL Q5MIN PRN PRN For Chest Pain (Reported) Followup Plan Discharge Diet: No restrictions Discharge Activity: No restrictions Time spent time spent on discharge less than 30 min Brando Bonilla MD Sep 19, 2016 14:38
--- NOTE | 2016-09-19 14:39 | PCM.DIMED ---
Discharge Instructions Date of Service Sep 19, 2016 Dates of Hospitalization Sep 18, 2016 at 17:03 Discharge Diagnosis Discharge Diagnosis hypotension Diet No restrictions Activity No restrictions Patient Instructions Take medications as prescribed Take adequate hydration on a daily basis Brando Bonilla MD Sep 19, 2016 14:39
--- NOTE | 2016-09-19 15:59 | NUR ---
discharged home with . VSS, pt up ambulating independently without and dizziness or syncope, discharged without changes to meds, no new prescription, has appt with PCP in 2 weeks
--- NOTE | 2016-09-19 16:20 | NUR ---
Social Work-attempted assessment/ discharge: Data:EMR Reviewed. SW attempted to see pt, but SW updated by RN that pt has been discharged. Pt to discharge home with . No discharge needs identified. All updated and agreeable to plan. Assessment:Pt who is independent at baseline. Plan:Pt to discharge home today via POV. No discharge needs identified. All updated and agreeable to plan. IRA Barron
== END 2016-09-19 15:56 | disposition home or self-care (01) ==
LOC: SED 11:40 → OSC 17:03 → INTOOBSV 17:03 → OBSVTOIN 17:03
PROVIDERS: ADMIT Hospitalist; ATTEND Hospitalist
DX: I95.9 Hypotension, unspecified (principal); N18.3 Chronic kidney disease, stage 3 (moderate); I12.9 Hypertensive chronic kidney disease with stage 1 through stage 4 chronic kidney disease, or unspecified chronic kidney disease; I50.32 Chronic diastolic (congestive) heart failure; J44.9 Chronic obstructive pulmonary disease, unspecified; F32.9 Major depressive disorder, single episode, unspecified; F41.9 Anxiety disorder, unspecified; I25.10 Atherosclerotic heart disease of native coronary artery without angina pectoris; E05.00 Thyrotoxicosis with diffuse goiter without thyrotoxic crisis or storm; R00.1 Bradycardia, unspecified; R07.9 Chest pain, unspecified; I25.2 Old myocardial infarction; K21.9 Gastro-esophageal reflux disease without esophagitis; F17.210 Nicotine dependence, cigarettes, uncomplicated; Z91.09 Other allergy status, other than to drugs and biological substances; Z91.041 Radiographic dye allergy status; Z91.048 Other nonmedicinal substance allergy status; Z79.82 Long term (current) use of aspirin
CPT/HCPCS: 36415; 71010; 80048; 80053; 83735; 84484; 85025; 93005; 96360; 97161; 99291; 99292; G0378; J7030

== ENCOUNTER 2016-12-09 18:54 | Inpatient (IN) | payer MEDICARE ==
[~2016-12-09] VITALS: Ht 172.7 cm; Wt 45.4 kg
[2016-12-09 18:57] VITALS: BP 194/110; PULSE 99; RESP 17; O2SAT 95
--- NOTE | 2016-12-09 19:15 | ED.REPORT ---
HPI-Chest Pain 40 and Over Date of Service December 09, 2016 ED Provider: Jayson Casillas DO Patient is a 71 year old female with a history of [place], stent placement, COPD, CAD and hypertension who presents to the ED complaining of chest pain onset 1800. Associated symptoms include cough. She describes the pain as a squeezing pressure and rates it as a 5/10. Nursing Notes Stated Complaint: CHEST PAIN Chief Complaint: Chest Pain Nursing Notes Reviewed: Yes Allergies: Coded Allergies: Iodine and Iodide Containing Produc (Verified Allergy, Severe, 09/18/16) Adhesives (Verified Allergy, Intermediate, 09/18/16) Uncoded Allergies: NKDA (Allergy, Unknown, 04/28/04) NKFA (Allergy, Unknown, 04/28/04) Scheduled Albuterol HFA (Proair HFA) 8.5 Gm Hfa.aer.ad 2 PUFFS INHALATION Q4H Aspirin (Aspirin) 81 Mg Tablet 81 MG PO DAILY Atorvastatin Calcium (Atorvastatin Calcium) 80 Mg Tablet 80 MG PO DAILY Chlorthalidone (Chlorthalidone) 25 Mg Tablet 25 MG PO DAILY Clopidogrel (Clopidogrel) 75 Mg Tablet 75 MG PO DAILY Isosorbide MN (Isosorbide MN) 10 Mg Tablet 10 MG PO BID Labetalol (Labetalol) 100 Mg Tablet 100 MG PO BID Levothyroxine (Synthroid) 75 Mcg Tablet 75 MCG PO DAILY Lisinopril (Lisinopril) 20 Mg Tablet 20 MG PO BID Paroxetine (Paroxetine) 40 Mg Tablet 40 MG PO HS Trazodone (Trazodone) 100 Mg Tablet 100 MG PO HS Scheduled PRN Alprazolam (Alprazolam) 0.5 Mg Tablet 0.5 MG PO HS PRN PRN For Anxiety Fluticasone Propionate (Fluticasone Propionate) 50 Mcg/Actuation [place].susp 2 SPRAY NOSTRIL daiy PRN PRN allergies Nitroglycerin SL (Nitrostat) 0.4 Mg Tab.subl 0.4 MG SL Q5MIN PRN PRN For Chest Pain General Time Seen by MD: 19:15 Chief Complaint Chest pain Hx Obtained From: Patient Arrived By: Walk-in Sudden in Onset?: Yes Severity: Current: Pain level 5 out of 10 Recent Healthcare: Recent doctor visit, Recent hospitalization Similar Sx Previous: Yes Past Medical History Past Medical History [place] Reports: COPD, Coronary artery disease, GERD, Hypertension, Stroke Reports: Depression, Thyroid disease Past Surgical History Cardiac stent placement Right rotator cuff repair Smoking History Current Every Day Smoker Social History Other Social History: Good social support, Ambulatory Status Independent Review of Systems Constitutional: Denies: Chills Respiratory: Reports: Non-productive cough, Denies: Shortness of breath Cardiovascular: Reports: Chest pain GI: Denies: Abdominal pain Musculoskeletal: Denies: Back pain Skin: Denies Bruising, Denies Diaphoresis Neurologic: Denies: Abnormal movement, Confusion Psychiatric: Denies: Agitation, Change mental status Complete sys rev & neg: except as marked. Physical Exam Initial Vital Signs Vital Signs (First) Date Time Temp Pulse Resp B/P Pulse Ox O2 Delivery O2 Flow Rate FiO2 12/09/16 18:57 36.0 99 17 194/110 95 Room Air Initial VS: Reviewed General/Constitutional: Awake, Alert Distress / Hydration: Positive: Distress moderate Respiratory / Chest: Atraumatic, Breath sounds NL, Breath sounds = bilat, No respiratory distress Heart Rate / Rhythm: Positive: Irregular rhythm, Tachycardia distant heart sounds barrel chested consistent with COPD symmetric pulses Abdomen: Atraumatic, Soft, Non-tender Skin: Atraumatic, Color NL, No rash, Warm, Dry Neurologic: Oriented X3, Speech NL, No motor deficits, No sensory deficits Psychiatric: Affect NL, Mood NL Head / Eyes: Atraumatic, Normocephalic, PERRL, EOMI Upper Extremity / MS: Atraumatic, Full range of motion Interpretation & Diagnostics Interpretation & Diagnostics: CHEST XRAY (RADIOLOGIST INTERPRETATION) IMPRESSION: Chronic diffuse scarring. No acute disease. Dictated by: Alfredo Edmondson M.D. on 12/09/2016 at 20:53 Approved by: Alfredo Edmondson M.D. on 12/09/2016 at 20:54 Lab Results Interpretation Result Diagram: 12/09/16191712/09/161917 Test 12/09/16 19:18 White Blood Count 7.7th/mm3 (3.8-10.1) Red Blood Count 5.06mil/mm3 (3.90-5.20) Hemoglobin 15.9g/dL (12.0-15.6) Hematocrit 45.1% (35.0-46.0) Mean Corpuscular Volume 89.1fL (81-100) Mean Corpuscular Hemoglobin 31.4pg (27.0-35.0) Mean Corpuscular Hemoglobin Concent 35.3% (32.0-37.0) Red Cell Distribution Width 12.4% (12.3-15.4) Platelet Count 154bil/L (150-400) Neutrophils (%) (Auto) 67.2% (40-74) Lymphocytes (%) (Auto) 20.9% (14-46) Monocytes (%) (Auto) 9.3% (4-12) Eosinophils (%) (Auto) 1.9% (0-5) Basophils (%) (Auto) 0.6% (0-3) Sodium Level 133mEq/L (134-144) Potassium Level 3.1mEq/L (3.5-5.2) Chloride Level 91mEq/L (97-108) Carbon Dioxide Level 23mmol/L (18-29) Blood Urea Nitrogen 29mg/dL (8-27) Creatinine 2.28mg/dL (0.57-1.00) Estimat Glomerular Filtration Rate 30mL/min (>59) Glucose Level 143mg/dL (60-99) Calcium Level 9.7mg/dL (8.5-10.1) Magnesium Level 2.1mg/dL (1.6-2.6) Total Bilirubin 0.6mg/dL (0.0-1.2) Aspartate Amino Transf (AST/SGOT) 22U/L (0-50) Alanine Aminotransferase (ALT/SGPT) 13U/L (0-32) Alkaline Phosphatase 137U/L (25-165) Total Protein 8.1g/dL (6.4-8.4) Albumin 4.4g/dL (3.4-5.0) ECG Interpretation ECG Interpretation: Atrial premature complexes probable left atrial enlargement RBBB consider left ventricular hypertrophy repol abnormal suggests ischemia, diffuse leads Time: 19:12 Interpreted by: ED physician Normal ECG Interpretation: Normal rate (86), Normal sinus rhythm ECG Interpretation: Sinus or ectopic atrial rhythm ST segments are improving RBBB ST depression, consider ischemia, inferior leads Time: 20:13 Interpreted by: ED physician Normal ECG Interpretation: Normal rate (76) X-Ray Chest Interpretation Chest Xray Interpretation: emphysematous changes no infiltrates View: Portable, 1 view Interpretation / Wet Read by: Wet read ED physician Re-Eval/Medical Decision Med Decision/Clinical Course 71-year-old female presents with hypertensive crisis and ischemic EKG with ST depression. No ST elevation [place]. Nitro drip infused. IV aliquots of beta fauzia given. Pressure came down. Pain resolved. Troponin negative. She will be admitted to the CCU because she continues to be on a nitroglycerin drip. I considered aortic dissection to be low risk. She did not have ripping or tearing pain. Her blood pressure was symmetric in her limbs. She did not have a pulse deficit. Her mediastinum was not widened. Time of Eval: 20:54 Patient Status: Condition improved Re-Evaluation/Progress Note: Patient reports that she is now pain free. Blood pressure down to 158. Discussed plan for admit. The patient understands and agrees to the plan. All questions were addressed. Consultation : Referral / Consult Name: Vianca Palma DO Consulted With: Hospitalist Call Returned at: 20:35 Utility Bill Collector: Agrees with eval, Agrees with plan, Accepts admit Counseled Regarding: Diagnosis, Lab results, Need for admission Discharge & Departure Primary Impression: Hypertensive crisis Additional Impression: Chest pain Chest pain type: unspecified Qualified Code: R07.9 - Chest pain, unspecified Disposition: ADMITTED TO HOSPITAL Discharge Condition All VS Reviewed: Yes Condition: Stable Referrals: Angle Peters MD (PCP) Crit Care Except Billable Proc Time Spent: 75-104 minutes Services Performed: Patient management by me, Time spent at bedside, Reviewing test results, Reviewing imaging, Discussing patient care, Documentation in record, Time with fam/surrogate Scribe Attestation Portions of this note were transcribed by Tsering Dhillon. I, Dr. Casillas personally performed the history, physical exam and medical decision-making; I reviewed and confirmed the accuracy of the information in the transcribed note. Signed by:Jose Cornejo, 12/09/16 and 2129 Jayson Casillas DO December 09, 2016 19:15 Sahara Dhillon December 09, 2016 19:52
[2016-12-09] MEDS ORDERED: Nitroglycerin 50 mg/250 mL D5W 50,000 MCG in IV Premix 1 EACH IV SCH (19:20)
[2016-12-09] MEDS ORDERED: Labetalol 5 mg/mL 4 mL Inj IVPUSH ONE (19:20)
[2016-12-09 19:53] LABS: BASOPHILS % (AUTO) 0.6 % (0-3); EOSINOPHILS % (AUTO) 1.9 % (0-5); MONOCYTES % (AUTO) 9.3 % (4-12); Mean Corpuscular Hemoglobin 31.4 pg (27.0-35.0); Mean Corpuscular Volume 89.1 fL (81-100); NEUTROPHILS % (AUTO) 67.2 % (40-74); Platelet Count 154 bil/L (150-400)
[2016-12-09 19:54] VITALS: BP 176/79; PULSE 85; RESP 20; O2SAT 93
[2016-12-09] MEDS: MeTOProlol 1 mg/mL 5 mL Inj IVPUSH SCH ×3 (19:57→20:29)
[2016-12-09 20:07] LABS: TROPONIN T < 0.010 ug/L (0.0-0.011)
[2016-12-09 20:15] LABS: Magnesium 2.1 mg/dL (1.6-2.6)
[2016-12-09 20:23] VITALS: BP 197/102; PULSE 74; RESP 15; O2SAT 95
[2016-12-09] MEDS ORDERED: Alum-Mag Hydrox-Simeth 30 mL Suspension PO PRN (20:45)
[2016-12-09] MEDS ORDERED: Ondansetron 2 mg/mL 2 mL Inj IVPUSH PRN (20:45)
[2016-12-09] MEDS ORDERED: Polyethylene Glycol (PEG) 17 Gm Powder PO PRN (20:45)
[2016-12-09] MEDS ORDERED: Senna-Docusate 8.6-50 mg Tablet PO PRN (20:45)
--- NOTE | 2016-12-09 20:48 | PCM.HPMED ---
Subjective Date of Service December 09, 2016 Primary Provider: Admitting Physician: Primary Care Physician: Angle Peters MD Attending Physician: Admit Status: From the Emergency Department Chief Complaint: chest pain History of Present Illness: 71yoF with past medical history of CAD, tobacco dependence, COPD, CVA, Grave's disease s/p thyroidectomy and depression admitted with one episode of chest pain prior to arrival. Patient is having a difficult time recalling the exact details of her chest pain occurrence. She states that she was sitting watching her TV when she began experiencing 8/ 10 non-radiating chest pain in the substernal region. She doesn't recall any associated symptoms such as diaphoresis, nausea, vomiting, lightheadedness, or dizziness. She does mention that the characteristic of the pain is similar to prior pain with [place]. She can't recall how long the pain lasted but has not had felt it again since presentation. Mrs. Ford can't remember when the last time she had a stress test and currently smokes 1ppd and isn't ready to quit. On presentation T36, HR 99, RR 17, BP 194/110, 95% on RA. Initial troponin negative. Review of Systems: complete review of systems obtained. positive as per hpi otherwise negative. Allergies Coded Allergies: Iodine and Iodide Containing Produc (Verified Allergy, Severe, 09/18/16) Adhesives (Verified Allergy, Intermediate, 09/18/16) Uncoded Allergies: NKDA (Allergy, Unknown, 04/28/04) NKFA (Allergy, Unknown, 04/28/04) Home Medications As per medication rec. Patient can't recall most medications and is unsure of doses. These will need to be confirmed. Albuterol Alprazolam ASA Atorvastatin Chlorthalidone Fluticasone Isosorbide MN Labetalol Levothyroxine Lisinopril Nitro SL Paroxetine Trazodone PMH UT COPD Coronary artery disease GERD Stroke Depression Grave's disease s/p thyroidectomy Surgical History Cardiac stent placement at in 2002 Right rotator cuff repair Thyroidectomy Carpal tunnel surgery Family History Father had UT, Peripheral vascular disease Mother Alzheimer's, Social History Occupation: retired Hx Alcohol Use: Yes Hx Substance Use: Yes (marijuana) Hx Tobacco Use: Yes (10 cigarette a day.) Smoking Status: Current Every Day Smoker (not ready to quit smoking) Living Arrangement: with Family (live with in concrete) Exam Vital Signs Vital Sign - Last Date Time Temp Pulse Resp B/P Pulse Ox O2 Delivery O2 Flow Rate FiO2 12/09/16 20:23 74 15 197/102 95 Room Air 12/09/16 18:57 36.0 Exam General: Alert, Oriented X3, Cooperative, No acute Distress, cachectic Eyes: PERRLA, Scleral Anicteric Mouth: Mouth Normal, Mucous Membranes Moist/[place] Neck: Supple, no Thyromegaly, trachea central. Chest & Lungs: diffuse insp/exp wheeze,no crackles, barrel chest, min insp effort Cardiovascular: Normal S1, Normal S2, No Murmurs/Rubs/Gallops, Regular Rate/ Rhythm, Murmur, Other (No JVD, no peripheral edema) Pulses: Radial (present and equal), Dorsalis Pedi (present and equal) GI: Soft, Non-tender, Non-distended, Normoactive bowel tones. Musculoskeletal: Unremarkable. Normal range of motion, no swollen or erythematous joints Extremities: No edema, no cyanosis, no clubbing. Skin: No rashes. Warm and dry, no erythematous areas Neurological: Grossly neurologically intact, has generalized weakness, Normal Speech, Sensation Intact Lymphatic: Lymph nodes Cervical and Axillary not palpable. Lab and Diagnostics Result Diagram: 12/09/16191712/09/161917 Assessment & Plan 71yoF with past medical history of CAD, tobacco dependence, COPD, CVA, Grave's disease s/p thyroidectomy and depression admitted with one episode of chest pain prior to arrival. Malignant HTN, acute, POA -unclear etiology, patient has been taking medications as prescribed -CP likely secondary to HTN -nitro gtt was started in ED, continue -continue home PO medications in order to titrate off nitro Chest pain, acute, POA -resolved on presentation with no further chest discomfort, likely secondary to HTN vs ACS -ASA given in ED. ASA daily -nitro SL CP -repeat EKG in am, EKG PRN chest pain -hgbA1c and lipid panel pending, trend troponins -continue plavix, atorvastatin, labetalol ( dose needs to be confirmed) -stress test following improved control of BP, likely as an outpatient Acute on chronic kidney failure, acute, POA -likely pre-renal -repeat with am labs -avoid nephrotoxic medications -holding FILEMON Hyponatremia, acute, POA -mild -repeat with am labs Hypokalemia, acute, POA -monitor -replete PRN Depression, chronic -continue paroxetine Insomnia, chronic -continue trazodone -continue alprazolam GERD, chronic -takes tums at home when needed COPD, chronic -not currently with COPD exacerbation -continue fluticasone, continue albuterol Patient is admitted under inpatient status with expected length of stay greater than 2 midnights due to severity of presenting symptoms, risk of adverse event, and complexity of treatment plan. Pain Evaluation: Adequate Pain Control VTE Prophylaxis: Sub-Q Heparin (Unfractionated) Resuscitation Status: DNR/DNI:Do Not Resuscitate/Intubate Vianca Palma DO December 09, 2016 20:48
[2016-12-09 20:54] VITALS: BP 158/86; PULSE 71; RESP 17; O2SAT 95
--- NOTE | 2016-12-09 20:56 | DRSVH ---
PROCEDURE: X-RAY CHEST ONE VIEW, PORTABLE ([id number]) INDICATIONS: chest pain TECHNIQUE: One view of the chest was acquired. COMPARISON: None. FINDINGS: Surgical changes and devices: None. Lungs and pleura: No pleural effusions or pneumothorax. Lungs are clear. Diffuse scarring. Mediastinum: Mediastinal contours appear normal. Heart size is normal. Bones and chest wall: No suspicious bony lesions. Overlying soft tissues appear unremarkable. Late ral curvature of the spine and discogenic changes. IMPRESSION: Chronic diffuse scarring. No acute disease. Dictated by: Alfredo Edmondson M.D. on 12/09/2016 at 20:53 Approved by: Alfredo Edmondson M.D. on 12/09/2016 at 20:54
[2016-12-09 21:42] VITALS: BP 131/81; PULSE 73; RESP 13; O2SAT 96
[2016-12-09 21:53] VITALS: BP 129/65; PULSE 73; RESP 14; O2SAT 95
[2016-12-09] MEDS ORDERED: Potassium Chloride 20 mEq SR Tab(K 3 - 3.7 & Cr 2.1 - 2.9) PO ONE (22:55)
[2016-12-09] MEDS ORDERED: ALPRAZolam 0.5 mg Tablet PO PRN (23:40)
[2016-12-09] MEDS ORDERED: Albuterol HFA 60 Puff 8 Gm Inhaler INHALATION SCH (23:40)
[2016-12-10] VITALS (7 sets, daily range): BP systolic 99–159; BP diastolic 51–81; PULSE 66–82; RESP 12–20; O2SAT 91–97
[2016-12-10 03:44] LABS: BASOPHILS % (AUTO) 1.1 % (0-3); EOSINOPHILS % (AUTO) 3.4 % (0-5); Mean Corpuscular Hemoglobin 31.5 pg (27.0-35.0); Platelet Count 139 bil/L (150-400)
[2016-12-10 04:14] LABS: APPEARANCE,URINE HAZY (CLEAR,HAZY); COLOR,URINE DARK YELLOW (YELLOW); OCCULT BLOOD,URINE SMALL (NEGATIVE); PH,URINE 5.5 (5.0-8.0); UROBILINOGEN,URINE NORMAL (NORMAL)
[2016-12-10 04:33] LABS: TROPONIN T 0.01 ug/L (0.0-0.011)
[2016-12-10] MEDS ORDERED: Potassium Chloride 20 mEq SR Tab(K 3 - 3.7 & Cr 2.1 - 2.9) PO ONE (05:40)
[2016-12-10] MEDS ORDERED: Fluticasone 0.05% 15 Spray/2 Gm 16 Gm Nasal Spray NASAL PRN (08:30)
[2016-12-10] MEDS ORDERED: Isosorbide Mononitrate 30 mg ER24 Tablet PO SCH (08:30)
[2016-12-10] MEDS ORDERED: ISOSORBIDE MONONITRATE 10 MG PO SCH (08:30)
[2016-12-10] MEDS: Albuterol 2.5 mg/3 mL Inhalation Solution NEB SCH ×3 (08:30→20:30)
[2016-12-10] MEDS: ISOSORBIDE MONONITRATE 10 MG PO SCH ×2 (09:37→20:30)
--- NOTE | 2016-12-10 14:20 | PCM.PNMED ---
Subjective Date of Service December 10, 2016 Subjective Hospital day 2. Overnight, Qi continued on the nitro drip with minimal complaint of chest discomfort (noted as chest heaviness). This a.m. she reports a very mild headache. She otherwise denies complaints. Focused review of systems is negative except as noted above. Exam Vital Signs Vital Sign - Last Date Time Temp Pulse Resp B/P Pulse Ox O2 Delivery O2 Flow Rate FiO2 12/10/16 08:00 36.6 74 16 153/81 91 Nasal Cannula 1.00 Intake and Output 12/09/16 12/09/16 12/10/16 Cumulative From/Thru 15:00 23:00 07:00 12/09/16 18:57 - 12/10/16 06:20 Intake Total 635 ml 635 ml Output Total 300 ml 300 ml Balance 335 ml 335 ml Intake Oral 600 ml 600 ml IV Total 35 ml 35 ml Output Urine Total 300 ml 300 ml Exam General: Alert, Oriented X3, Cooperative, No acute Distress, cachectic Eyes: PERRL with EOMI intact, Scleral Anicteric without conjunctival injection Mouth: Mouth Normal, Mucous Membranes Moist/[place]. Poor dentition with front teeth missing. Neck: Supple, no Thyromegaly, trachea central. Chest & Lungs: Minimal wheeze,no crackles, barrel chest, no use of accessory muscles Cardiovascular: Normal S1, Normal S2, No Murmurs/Rubs/Gallops, Regular Rate/ Rhythm, Murmur, Other (No JVD, no peripheral edema) Pulses: Radial (present and equal), Dorsalis Pedi (present and equal) GI: Soft, Non-tender, Non-distended, Normoactive bowel tones. Musculoskeletal: Unremarkable. Normal range of motion, no swollen or erythematous joints Extremities: No edema, no cyanosis, no clubbing. Skin: No rashes. Warm and dry, no erythematous areas Neurological: Grossly neurologically intact, has generalized weakness, Normal Speech, Sensation Intact Lymphatic: Lymph nodes Cervical and Axillary not palpable. IVs and Medications Medications Reviewed: Medications were reviewed in detail Lab and Diagnostics Laboratory Tests Test 12/09/16 19:18 12/09/16 22:50 12/10/16 00:45 12/10/16 03:20 White Blood Count 7.7th/mm3 (3.8-10.1) 7.9th/mm3 (3.8-10.1) Red Blood Count 5.06mil/mm3 (3.90-5.20) 4.41mil/mm3 (3.90-5.20) Hemoglobin 15.9g/dL (12.0-15.6) 13.9g/dL (12.0-15.6) Hematocrit 45.1% (35.0-46.0) 39.7% (35.0-46.0) Mean Corpuscular Volume 89.1fL (81-100) 90.0fL (81-100) Mean Corpuscular Hemoglobin 31.4pg (27.0-35.0) 31.5pg (27.0-35.0) Mean Corpuscular Hemoglobin Concent 35.3% (32.0-37.0) 35.0% (32.0-37.0) Red Cell Distribution Width 12.4% (12.3-15.4) 12.3% (12.3-15.4) Platelet Count 154bil/L (150-400) 139bil/L (150-400) Neutrophils (%) (Auto) 67.2% (40-74) 51.0% (40-74) Lymphocytes (%) (Auto) 20.9% (14-46) 32.4% (14-46) Monocytes (%) (Auto) 9.3% (4-12) 12.0% (4-12) Eosinophils (%) (Auto) 1.9% (0-5) 3.4% (0-5) Basophils (%) (Auto) 0.6% (0-3) 1.1% (0-3) Sodium Level 133mEq/L (134-144) 135mEq/L (134-144) Potassium Level 3.1mEq/L (3.5-5.2) 3.6mEq/L (3.5-5.2) Chloride Level 91mEq/L (97-108) 95mEq/L (97-108) Carbon Dioxide Level 23mmol/L (18-29) 23mmol/L (18-29) Blood Urea Nitrogen 29mg/dL (8-27) 34mg/dL (8-27) Creatinine 2.28mg/dL (0.57-1.00) 2.25mg/dL (0.57-1.00) Estimat Glomerular Filtration Rate 30mL/min (>59) 31mL/min (>59) Glucose Level 143mg/dL (60-99) 99mg/dL (60-99) Calcium Level 9.7mg/dL (8.5-10.1) 9.5mg/dL (8.5-10.1) Magnesium Level 2.1mg/dL (1.6-2.6) Total Bilirubin 0.6mg/dL (0.0-1.2) Aspartate Amino Transf (AST/SGOT) 22U/L (0-50) Alanine Aminotransferase (ALT/SGPT) 13U/L (0-32) Alkaline Phosphatase 137U/L (25-165) Troponin T < 0.010ug/L (0.0-0.011) 0.010ug/L (0.0-0.011) 0.010ug/L (0.0-0.011) Total Protein 8.1g/dL (6.4-8.4) Albumin 4.4g/dL (3.4-5.0) Thyroid Stimulating Hormone (TSH) 8.420uIU/mL (0.450-4.500) Free Thyroxine 1.44ng/dL (0.82-1.77) Urine Color Dark yellow (YELLOW) Urine Appearance Hazy (CLEAR,HAZY) Urine pH 5.5 (5.0-8.0) Urine Specific [place] 1.035 (1.003-1.035) Urine Protein >300mg/dL (NEG,TRACE) Urine Glucose (UA) Negativemg/dL (NEGATIVE) Urine Ketones Tracemg/dL (NEGATIVE) Urine Occult Blood Small (NEGATIVE) Urine Nitrite Negative (NEGATIVE) Urine Bilirubin Negative (NEGATIVE) Urine Urobilinogen Normalmg/dL (NORMAL) Urine Leukocyte Esterase Negative (NEGATIVE) Urine RBC 0-2/hpf (0-2) Urine WBC 0-5/hpf (0-5) Urine Epithelial Cells Few/hpf (NONE-MOD) Urine Crystals None seen (NONE SEEN) Urine Bacteria Few/hpf (NONE-FEW) Urine Hyaline Casts None/lpf (NONE) Urine Granular Casts None seen (NONE SEEN) Urine Waxy Casts None seen (NONE SEEN) Urine Red Blood Cell Casts None seen (NONE SEEN) Urine White Blood Cell Casts None seen (NONE SEEN) Urine Mucus None seen (None Seen) Urine Trichomonas None seen (NONE SEEN) Urine Yeast None (NONE SEEN) Urine Culture Reflexed Not indicated Hold Urine Received (Received) Triglycerides Level 103mg/dL (0-149) Cholesterol Level 216mg/dL (100-199) LDL Cholesterol, Calculated 111.400mg/dL (0-99) VLDL Cholesterol 20.600mg/dL HDL Cholesterol 84mg/dL (>39) Cholesterol/HDL Ratio 2.57 (0.0-4.4) Test 12/10/16 10:27 Potassium Level 3.6mEq/L (3.5-5.2) Result Diagram: 12/10/16 0320 12/10/16 1027 X-Rays, CTs and MRIs Date of Service: 12/09/16 190 PROCEDURE: X-RAY CHEST ONE VIEW, PORTABLE ([id number]) INDICATIONS: chest pain IMPRESSION: Chronic diffuse scarring. No acute disease. Dictated by: Alfredo Edmondson M.D. on 12/09/2016 at 20:53 12-lead ECG EKG 12/09/16: Sinus with a rate of 76 and a prolonged QTc of 528. RBBB. Some ST depression in inferior. Please note, no significant change from 09/18/16. Cardiac Echo Impressions Please note that echo below was 09/11/16: Interpretation Summary 1) Mild concentric left ventricular hypertrophy with normal size and mildly reduced systolic function (EF 45-50%). 2) Basal inferior wall is hypokinetic. 3) Borderline enlarged right ventricle with normal function. 4) Septal flattening during systole suggests right ventricular pressure/volume overload. 5) Moderate mitral regurgitation present. 6) Mild to moderate tricuspid regurgitation present. 7) Moderate size left pleural effusion present. 8) Pulmonary hypertension present, estimated systolic pulmonary pressure of 52mmHg. 9) Elevated left and right sided filling pressures. 10) Compared to the Echo done 05/07/2012, reduced LV function, basal inferior wall hypokinesis, pulmonary hypertension, and hypervolemia are new on today's study. Assessment & Plan 71yoF with past medical history of CAD, tobacco dependence, COPD, CVA, Grave's disease s/p thyroidectomy and depression admitted with one episode of chest pain prior to arrival. Presentation associated with significant hypertension. Hospital day 2. Hypertensive emergency (associated chest pain), acute on chronic, POA -unclear etiology, patient reports has been taking medications as prescribed -CP likely secondary to HTN -nitro gtt was started in ED, continue, and wean off as we continue home medications (isosorbide mononitrate and labetalol) * Patient's reported headache today is likely secondary to nitro drip (continue to monitor) -We will continue to hold home hydrochlorothiazide and lisinopril until kidney function improves -consider CT head with any change in mentation or neurologic status Chest pain, acute, POA -resolved on presentation with no further chest discomfort, likely secondary to HTN vs ACS (ACS much less likely in the setting of negative troponins 3) -ASA given in ED. ASA daily -nitro SL as needed -EKG without significant change from previous in August 2015 -hgbA1c and lipid panel as above -continue plavix, atorvastatin, and blood pressure meds as noted above -stress test following improved control of BP, likely as an outpatient Acute on chronic kidney failure, POA -In setting of hypertensive emergency -Follow BMP -avoid nephrotoxic medications -holding FILEMON Hypothyroidism, chronic -TSH elevated, and suggestive of subclinical hypothyroidism/subtherapeutic dose -Consideration for dose increase versus follow-up with PCP for dose optimization Hyponatremia, acute, POA. Resolved Hypokalemia, acute, POA. Resolved Depression, chronic -continue paroxetine Insomnia, chronic -continue trazodone -continue alprazolam GERD, chronic -takes tums at home when needed COPD, chronic -not currently with COPD exacerbation -continue fluticasone, continue albuterol PRN MEDICATIONS - Acetaminophen as needed for mild pain/fever/headache - Bowel regimen as needed - Antiemetic as needed Patient is admitted under inpatient status with expected length of stay greater than 2 midnights due to severity of presenting symptoms, risk of adverse event, and complexity of treatment plan. Disposition: Likely discharge in 1-2 days as we get better control of her hypertension. Pain Evaluation: Adequate Pain Control GI Prophylaxis: Not indicated VTE Prophylaxis: Sub-Q Heparin (Unfractionated) Resuscitation Status: CPR: Attempt Resuscitation Attending Statement The patient was seen and examined together with Dr. Forrest on 12/10/2016 and I agree with the history, exam and plan as outlined in the note above. . Dg Lomeli DO December 10, 2016 13:32 Jamey Cifuentes MD December 10, 2016 17:21
[2016-12-10] MEDS ORDERED: Potassium Chloride 20 mEq SR Tablet ONE (17:42)
[2016-12-10] MEDS ORDERED: PARoxetine 20 mg Tablet PO SCH (21:00)
[2016-12-11] VITALS (8 sets, daily range): BP systolic 150–184; BP diastolic 57–75; PULSE 63–75; RESP 16–20; O2SAT 92–94
[2016-12-11] MEDS: Albuterol 2.5 mg/3 mL Inhalation Solution NEB SCH ×2 (06:07→12:39)
[2016-12-11] MEDS: ISOSORBIDE MONONITRATE 10 MG PO SCH (07:53)
--- NOTE | 2016-12-11 13:17 | PCM.DIMED ---
Mague Rhodes DO 12/11/16 1226: Discharge Instructions Date of Service December 11, 2016 Dates of Hospitalization December 09, 2016 at 20:55 Discharge Diagnosis Discharge Diagnosis -Hypertensive emergency (associated chest pain) -Chest pain -Acute on chronic kidney failure -COPD -Hypothyroidism -Depression -Gastroesophageal reflux -Depression Diet Heart Healthy Activity Other (As tolerated. ) Call your provider Fever or Chills, Shortness of breath, Chest pain, Other (If you develop new or concerning symptoms, contact your primary care physician. ) Patient Instructions -It is important that you followup with a primary care physician within the next week. -An appointment has been [facility] for [facility] at [facility] this SundayDecember 15. -Please review this hospital stay, blood pressure monitoring and medications at your appointment on Sunday. Follow-up plan [facility] [address] [place] [address] . Follow-up Provider: [facility] Follow-up with PCP in: 1 week Provider: Angle Peters MD Follow-up with Mid-level in: 4 weeks (4-8 weeks) Jamey Cifuentes MD 12/11/16 1650: Discharge Instructions Attending's Statement The patient was seen and examined together with Dr. Rhodes on 12/11/2016 and I agree with the history, exam and plan as outlined in the note above. . Mague Rhodes DO December 11, 2016 12:26 Jamey Cifuentes MD December 11, 2016 16:50
--- NOTE | 2016-12-11 13:47 | PCM.DC.MED ---
Discharge Summary Date of Service December 11, 2016 Dates of Hospitalization Date of Hospital Admission December 09, 2016 at 20:55 Date of Discharge: December 11, 2016 Providers: Admitting Physician: Vianca Palma DO Primary Care Physician: Angle Peters MD Attending Physician: Vianca Palma DO Diagnosis at Time of Discharge Diagnosis at Time of Discharge -Hypertensive emergency (associated chest pain), acute on chronic. -Acute chest pain. Rule out acute coronary syndrome. -Acute on chronic kidney failure. -COPD, chronic -Hypothyroidism, chronic -Hyponatremia, acute -Hypokalemia, acute -Depression, chronic -Insomnia, chronic -GERD, chronic Procedures XRay, CTs & MRIs Date of Service: 12/09/16 1905 X-RAY CHEST ONE VIEW, PORTABLE: IMPRESSION: Chronic diffuse scarring. No acute disease. Dictated by: Alfredo Edmondson M.D. on 12/09/2016 at 20:53 . ECG 12 Lead EKG 12/09/16: Sinus with a rate of 76 and a prolonged QTc of 528. RBBB. Some ST depression in inferior. Please note, no significant change from 09/18/16. EKG 12/11/16: Sinus rhythm, RBBB and similar to 12/09. Cardiac Echo Impression Please note that echo below was 09/11/16: Interpretation Summary 1) Mild concentric left ventricular hypertrophy with normal size and mildly reduced systolic function (EF 45-50%). 2) Basal inferior wall is hypokinetic. 3) Borderline enlarged right ventricle with normal function. 4) Septal flattening during systole suggests right ventricular pressure/volume overload. 5) Moderate mitral regurgitation present. 6) Mild to moderate tricuspid regurgitation present. 7) Moderate size left pleural effusion present. 8) Pulmonary hypertension present, estimated systolic pulmonary pressure of 52mmHg. 9) Elevated left and right sided filling pressures. 10) Compared to the Echo done 05/07/2012, reduced LV function, basal inferior wall hypokinesis, pulmonary hypertension, and hypervolemia are new on today's study. Brief History Per admission history and physical on December 09, 2016. Vianca Palma DO. 71yoF with past medical history of CAD, tobacco dependence, COPD, CVA, Grave's disease s/p thyroidectomy and depression admitted with one episode of chest pain prior to arrival. Patient is having a difficult time recalling the exact details of her chest pain occurrence. She states that she was sitting watching her TV when she began experiencing 8/ 10 non-radiating chest pain in the substernal region. She doesn't recall any associated symptoms such as diaphoresis, nausea, vomiting, lightheadedness, or dizziness. She does mention that the characteristic of the pain is similar to prior pain with IN. She can't recall how long the pain lasted but has not had felt it again since presentation. Mrs. Ford can't remember when the last time she had a stress test and currently smokes 1ppd and isn't ready to quit. On presentation T36, HR 99, RR 17, BP 194/110, 95% on RA. Initial troponin negative. Hospital Course Qi Ford is a 71-year-old female with past medical history of coronary artery disease with previous myocardial infarction and cardiac stent placement, cerebrovascular accident, COPD, and Grave's disease status post thyroidectomy who presented with chest pain. Admitted for hypertensive emergency and possible acute coronary syndrome. 1. Hypertensive emergency (associated chest pain), acute on chronic. Present on admission. Resolved. -unclear etiology, patient reports has been taking medications as prescribed -CP likely secondary to HTN -nitro gtt was started in ED, continue, and wean off as we continue home medications (isosorbide mononitrate and labetalol) * Patient's reported headache today is likely secondary to nitro drip (continue to monitor) -We will continue to hold home hydrochlorothiazide and lisinopril until kidney function improves -consider CT head with any change in mentation or neurologic status 2. Rule out acute coronary syndrome. Present on admission. -Patient has a known history of coronary artery disease and presented with chest pain. At presentation she reported resolution of symptoms. Chest pain likely secondary to hypertension. Acute coronary syndrome much less likely in the setting of negative troponins x4 and EKG without significant change from prior EKGs. -Patient received aspirin at presentation and was continued on daily aspirin, clopidogrel, and atorvastatin. -Lipid panel: LDL 111, HDL 84, triglycerides 216, cholesterol/HDL ratio 2.57. -Sublingual nitroglycerin was available as needed. -Recommend outpatient followup with Cardiology to review hospital stay and evaluate for possible stress test. 3. Acute on chronic kidney failure. Present on admission. Stable. -In setting of hypertensive emergency -Patient's home lisinopril was held at presentation as well as at discharge. BP well controlled on Isosorbide MN and Labetalol. -Patient advised to address this with her primary care provider. -Follow up BMP needed at hospital follow-up visit 4. Chronic hypothyroidism. Present on admission. Presumed stable. -TSH elevated (8.4), and suggestive of subclinical hypothyroidism/ subtherapeutic dose of patient's home levothyroxine. -Free T4 (1.44) and patient continued on Levothyroxine 75mcg daily. -Recommend outpatient followup. 5. Hyponatremia, acute. Present on admission. Resolved. 6. Hypokalemia, acute. Present on admission. Resolved. 7. COPD, chronic. Present on admission. Presumed stable. -Patient not currently in acute exacerbation and was continued on home fluticasone and albuterol. -Advised patient to quit smoking. 8. Depression, chronic. Present on admission. Presumed stable. -Patient was continued on Paroxetine. 9. Insomnia, chronic. Present on admission. Presumed stable. -Patient was continued on home Trazadone and alprazolam 10. Nicotine addiction, chronic. Present on admission. Active -Counseled patient regarding smoking cessation -Patient was treated with nicotine patch. 11. GERD, chronic. Present on admission. Presumed stable. -Patient stated that she takes Tums at home with good relief. -Calcium carbonate (Tums) was available as needed. Exam Vital Signs (Last) Date Time Temp Pulse Resp B/P Pulse Ox O2 Delivery O2 Flow Rate FiO2 12/11/16 12:40 74 16 93 Room Air 12/11/16 08:18 36.6 150/61 12/10/16 08:00 1.00 Exam General: Alert, Oriented X3, Cooperative, No acute Distress, cachectic Eyes: PERRL with EOMI intact, Scleral Anicteric without conjunctival injection Mouth: Mouth Normal, Mucous Membranes Moist/[place]. Poor dentition with front teeth missing. Neck: Supple, no Thyromegaly, trachea central. Chest & Lungs: Minimal wheeze,no crackles, barrel chest, no use of accessory muscles Cardiovascular: Normal S1, Normal S2, No Murmurs/Rubs/Gallops, Regular Rate/ Rhythm, Murmur, Other (No JVD, no peripheral edema) Pulses: Radial (present and equal), Dorsalis Pedi (present and equal) GI: Soft, Non-tender, Non-distended, Normoactive bowel tones. Musculoskeletal: Unremarkable. Normal range of motion, no swollen or erythematous joints Extremities: No edema, no cyanosis, no clubbing. Skin: No rashes. Warm and dry, no erythematous areas Neurological: Grossly neurologically intact, has generalized weakness, Normal Speech, Sensation Intact Lymphatic: Lymph nodes Cervical and Axillary not palpable. Test 12/09/16 19:18 12/10/16 00:45 12/10/16 03:20 12/11/16 02:40 Magnesium Level 2.1mg/dL (1.6-2.6) Total Bilirubin 0.6mg/dL (0.0-1.2) Aspartate Amino Transf (AST/SGOT) 22U/L (0-50) Alanine Aminotransferase (ALT/SGPT) 13U/L (0-32) Alkaline Phosphatase 137U/L (25-165) Total Protein 8.1g/dL (6.4-8.4) Albumin 4.4g/dL (3.4-5.0) Thyroid Stimulating Hormone (TSH) 8.420uIU/mL (0.450-4.500) Free Thyroxine 1.44ng/dL (0.82-1.77) Urine Color Dark yellow (YELLOW) Urine Appearance Hazy (CLEAR,HAZY) Urine pH 5.5 (5.0-8.0) Urine Specific [place] 1.035 (1.003-1.035) Urine Protein >300mg/dL (NEG,TRACE) Urine Glucose (UA) Negativemg/dL (NEGATIVE) Urine Ketones Tracemg/dL (NEGATIVE) Urine Occult Blood Small (NEGATIVE) Urine Nitrite Negative (NEGATIVE) Urine Bilirubin Negative (NEGATIVE) Urine Urobilinogen Normalmg/dL (NORMAL) Urine Leukocyte Esterase Negative (NEGATIVE) Urine RBC 0-2/hpf (0-2) Urine WBC 0-5/hpf (0-5) Urine Epithelial Cells Few/hpf (NONE-MOD) Urine Crystals None seen (NONE SEEN) Urine Bacteria Few/hpf (NONE-FEW) Urine Hyaline Casts None/lpf (NONE) Urine Granular Casts None seen (NONE SEEN) Urine Waxy Casts None seen (NONE SEEN) Urine Red Blood Cell Casts None seen (NONE SEEN) Urine White Blood Cell Casts None seen (NONE SEEN) Urine Mucus None seen (None Seen) Urine Trichomonas None seen (NONE SEEN) Urine Yeast None (NONE SEEN) Urine Culture Reflexed Not indicated Hold Urine Received (Received) White Blood Count 7.9th/mm3 (3.8-10.1) Red Blood Count 4.41mil/mm3 (3.90-5.20) Hemoglobin 13.9g/dL (12.0-15.6) Hematocrit 39.7% (35.0-46.0) Mean Corpuscular Volume 90.0fL (81-100) Mean Corpuscular Hemoglobin 31.5pg (27.0-35.0) Mean Corpuscular Hemoglobin Concent 35.0% (32.0-37.0) Red Cell Distribution Width 12.3% (12.3-15.4) Platelet Count 139bil/L (150-400) Neutrophils (%) (Auto) 51.0% (40-74) Lymphocytes (%) (Auto) 32.4% (14-46) Monocytes (%) (Auto) 12.0% (4-12) Eosinophils (%) (Auto) 3.4% (0-5) Basophils (%) (Auto) 1.1% (0-3) Triglycerides Level 103mg/dL (0-149) Cholesterol Level 216mg/dL (100-199) LDL Cholesterol, Calculated 111.400mg/dL (0-99) VLDL Cholesterol 20.600mg/dL HDL Cholesterol 84mg/dL (>39) Cholesterol/HDL Ratio 2.57 (0.0-4.4) Sodium Level 136mEq/L (134-144) Potassium Level 3.7mEq/L (3.5-5.2) Chloride Level 95mEq/L (97-108) Carbon Dioxide Level 25mmol/L (18-29) Blood Urea Nitrogen 51mg/dL (8-27) Creatinine 2.23mg/dL (0.57-1.00) Estimat Glomerular Filtration Rate 31mL/min (>59) Glucose Level 116mg/dL (60-99) Calcium Level 9.0mg/dL (8.5-10.1) Test 12/11/16 11:20 Troponin T < 0.010ug/L (0.0-0.011) Discharge Medications Discharge Medications Albuterol HFA (Proair HFA) 8.5 Gm Hfa.aer.ad 2 PUFFS INHALATION Q4H (Reported) Aspirin (Aspirin) 81 Mg Tablet 81 MG PO DAILY (Reported) Atorvastatin Calcium (Atorvastatin Calcium) 80 Mg Tablet 80 MG PO DAILY ( Reported) Chlorthalidone (Chlorthalidone) 25 Mg Tablet 25 MG PO DAILY Prescribed by: VARUN UNGER, DO Clopidogrel (Clopidogrel) 75 Mg Tablet 75 MG PO DAILY (Reported) Isosorbide MN (Isosorbide MN) 10 Mg Tablet 10 MG PO BID (Reported) Labetalol (Labetalol) 100 Mg Tablet 100 MG PO BID Prescribed by: VARUN UNGER, DO Levothyroxine (Synthroid) 75 Mcg Tablet 75 MCG PO DAILY (Reported) Paroxetine (Paroxetine) 40 Mg Tablet 40 MG PO HS (Reported) Trazodone (Trazodone) 100 Mg Tablet 100 MG PO HS (Reported) As needed Alprazolam (Alprazolam) 0.5 Mg Tablet 0.5 MG PO HS PRN PRN For Anxiety (Reported ) Fluticasone Propionate (Fluticasone Propionate) 50 Mcg/Actuation [place].susp 2 SPRAY NOSTRIL daiy PRN PRN allergies (Reported) Nitroglycerin SL (Nitrostat) 0.4 Mg Tab.subl 0.4 MG SL Q5MIN PRN PRN For Chest Pain (Reported) [facility] [address] [place] [address] . Discharge Diet: Heart Healthy Discharge Activity: Other (As tolerated. ) Patient Instructions -It is important that you followup with a primary care physician within the next week. -An appointment has been made for you at the [facility] this SundayDecember 15. -Please review this hospital stay, blood pressure monitoring and medications at your appointment on Sunday. Follow-up Provider: [facility] Follow-up with PCP in: 1 week Provider: Angle Peters MD Follow-up with Mid-level in: 4 weeks (4-8 weeks) Time spent Greater than 30 minutes was spent in preparation of discharge with greater than 50% of that time dedicated to patient counseling and coordination of care. . Attending Statement The patient was seen and examined together with Dr. Rhodes on 12/11/2016 and I agree with the history, exam and plan as outlined in the note above. . copies to: Jay Stone Courtney M DO December 11, 2016 13:20 Jamey Cifuentes MD December 11, 2016 16:55
== END 2016-12-11 16:24 | disposition home or self-care (01) | DRG 305 ==
LOC: SED 18:54 → CCU 20:55 → PCC 12-10 17:50
PROVIDERS: ADMIT Internal Medicine; ATTEND Internal Medicine
DX: I16.1 Hypertensive emergency (principal); N17.9 Acute kidney failure, unspecified; E87.1 Hypo-osmolality and hyponatremia; I25.2 Old myocardial infarction; Z95.5 Presence of coronary angioplasty implant and graft; Z79.82 Long term (current) use of aspirin; F17.210 Nicotine dependence, cigarettes, uncomplicated; Z86.73 Personal history of transient ischemic attack (TIA), and cerebral infarction without residual deficits; N18.9 Chronic kidney disease, unspecified; E87.6 Hypokalemia; F32.9 Major depressive disorder, single episode, unspecified; G47.00 Insomnia, unspecified; K21.9 Gastro-esophageal reflux disease without esophagitis; J44.9 Chronic obstructive pulmonary disease, unspecified; Z66 Do not resuscitate; E03.9 Hypothyroidism, unspecified